=== PATIENT | female | born 1950 | race Caucasian/White ===

== ENCOUNTER → 2018-02-23 | Outpatient (CLI) | payer MEDICARE ==
--- NOTE | 2018-02-25 11:19 | PE ---
EXAMINATION TYPE: PET CT fusion skull to thigh DATE OF EXAM: 02/23/2018 COMPARISON: PET/CT January 08, 2016. HISTORY: Lung cancer progress study completed chemotherapy and radiation treatment in 2016. TECHNIQUE: Following the intravenous administration of 12.41 mCi of F-18 FDG, whole body images are performed from the skull base to the midthigh. Images are reviewed on the computer in the coronal, a xial, and sagittal planes. Reconstructed rotating images are created on independent workstation and reviewed on the computer. A noncontrast CT is performed in conjunction with the PET scan. SCAN: Subsequent Scan FINDINGS: SKULL BASE AND NECK: No suspicious new areas of hypermetabolic uptake are seen. CHEST, MEDIASTINUM, AND HILAR REGION: There is redemonstration of background of moderate emphysematou s change. There has been interval surgery with right anterolateral upper rib deformities. There is ir regular parenchymal scarring or scarlike opacity in the anterolateral right upper lung at area of james or neoplasm, no suspicious increased hypermetabolic uptake is seen to suggest recurrent local neoplas m. Mild diffuse uptake is presumed posttreatment change with max SUV less than 2.5. Some mild hyperme tabolic uptake is seen in the right scapular muscles near this level presumed inflammatory or related to surgery, max SUV is 3.3. Along the anterior inferior medial aspect of the treated area there is h owever new 9 x 5 mm nodule axial image 80. No suspicious hypermetabolic uptake is present No new areas of abnormal hypermetabolic uptake are otherwise seen. ABDOMEN AND PELVIS: No new areas of suspicious hypermetabolic uptake are seen. OSSEOUS STRUCTURES: No new areas of suspicious hypermetabolic uptake are seen. OTHER CT: There is new mild to moderate mucosal thickening in visualized portion of left maxillary sinus now id entified. There is mild calcified plaque at bilateral carotid bulbs redemonstrated. There are persistent enlarged pulmonary arteries, CT findings suggesting underlying pulmonary artery hypertension. There is coronary artery calcification which is noted marker for coronary artery disease. There are scattered pelvic phleboliths. There is moderate to severe calcified plaque of aorta extending into branch vessels. There is focal e ctasia of the abdominal aorta measuring up to 2.6 cm AP diameter axial image 154. There is tiny fat-containing umbilical hernia. There is facet arthropathy lower lumbar levels. There is multilevel spurring in the spine. IMPRESSION: Interval successful treatment of right lung neoplasm. No new suspicious areas of abnormal hypermetabolic uptake are seen to suggest recurrent neoplasm or metastatic disease. I do identify ne w 9 x 5 mm nodule near site of neoplasm and surgery without abnormal hypermetabolic uptake. Advise CT monitoring of this area.
== END ==
LOC: RADPETMAIN 09:21
PROVIDERS: ATTEND Radiology Radiation Oncology
DX: C34.11 Malignant neoplasm of upper lobe, right bronchus or lung (principal); C21.1 Malignant neoplasm of anal canal
CPT/HCPCS: 78815; A9552

== ENCOUNTER 2020-03-13 19:28 | Inpatient (IN) | payer MEDICARE ==
[2020-03-13] MEDS ORDERED: DEXTROSE 5% IN WATER 100 ML with AMIODARONE 150 MG IV ONE (20:02)
[2020-03-13] MEDS ORDERED: AMIODARONE 360 MG in DEXTROSE 5% IN WATER 200 ML IV ONE ×2 (20:03)
[2020-03-13] MEDS ORDERED: SODIUM CHLORIDE 0.9% 500 ML 500 ML IV STA (20:05)
[2020-03-13 20:19] LABS: Anisocytosis Slight; Basophils % (A) 0 %; Eosinophils % (A) 0 %; HCT 31.1 % (34.0-46.0); HGB 9.9 gm/dL (11.4-16.0); Lymphocytes # (A) 0.5 k/uL (1.0-4.8); Lymphocytes % (A) 7 %; MCH 31.5 pg (25.0-35.0); MCHC 31.9 g/dL (31.0-37.0); MCV 98.6 fL (80.0-100.0); Macrocytosis Slight; Mean Platelet Volume 8.8; Monocytes # (A) 0.3 k/uL (0-1.0); Monocytes % (A) 4 %; Neutrophils # (A) 6.6 k/uL (1.3-7.7); Neutrophils % (A) 87 %; Platelet Count 193 k/uL (150-450); RBC 3.15 m/uL (3.80-5.40); RDW 16.7 % (11.5-15.5); WBC 7.5 k/uL (3.8-10.6)
[2020-03-13 20:29] LABS: Albumin 2.9 g/dL (3.5-5.0); Calcium 8.7 mg/dL (8.4-10.2); Magnesium 2.2 mg/dL (1.6-2.3); Total Bilirubin 0.6 mg/dL (0.2-1.3); Total Protein 5.3 g/dL (6.3-8.2)
--- NOTE | 2020-03-13 20:43 | ED ---
General Adult HPI <StephonPranav D - Last Filed: 03/13/20 23:45> - General Source: patient, RN/MD, EMS, RN notes reviewed Mode of arrival: EMS Limitations: altered mental status <Garret Cervantes - Last Filed: 03/14/20 00:56> - General Chief complaint: Abdominal Pain Stated complaint: Abdominal Pain Time Seen by Provider: 03/13/20 19:46 - History of Present Illness Initial comments: 70-year-old female patient brought to ED from assisted living facility. Was apparently having abdominal pain. Patient does have history of dementia. Patient is altered and is unable to provide any history. (Garret Cervantes) - Related Data Home Medications Medication Instructions Recorded Confirmed Acetaminophen [Tylenol] 650 mg PO QID PRN 03/13/20 03/13/20 Aspirin 81 mg PO DAILY@169903/13/20 03/13/20 Atorvastatin [Lipitor] 20 mg PO HS@209903/13/20 03/13/20 Bisacodyl [Dulcolax] 10 mg RECTAL DAILY PRN 03/13/20 03/13/20 Carvedilol [Coreg] 3.125 mg PO BID@0800,209903/13/20 03/13/20 Donepezil HCl [Aricept] 5 mg PO HS@209903/13/20 03/13/20 Lactose-Reduced Food [Ensure Plus] 1 can PO DAILY@0800 03/13/20 03/13/20 Loperamide [Imodium] 2 mg PO DIRECTED PRN 03/13/20 03/13/20 Magic Cup 1 each PO DAILY@169903/13/20 03/13/20 Magnesium Hydroxide [Milk of 7,200 mg PO DAILY PRN 03/13/20 03/13/20 Magnesia Concentrate] Megestrol Acetate 400 mg PO BID@0800,0 03/13/20 03/13/20 Na Phos,M-B/Na Phos,Di-Ba [Fleet 133 ml RECTAL DAILY PRN 03/13/20 03/13/20 Adult] amLODIPine [Norvasc] 5 mg PO DAILY@0800 03/13/20 03/13/20 Allergies Allergy/AdvReac Type Severity Reaction Status Date / Time No Known Allergies Allergy Verified 03/13/20 20:49 Review of Systems ROS Other: All systems not noted in ROS Statement are negative. <Pranav Szymanski - Last Filed: 03/13/20 23:45> ROS Other: All systems not noted in ROS Statement are negative. <Garret Cervantes - Last Filed: 03/14/20 00:56> ROS Statement: Those systems with pertinent positive or pertinent negative responses have been documented in the HPI. Past Medical History History of Any Multi-Drug Resistant Organisms: MRSA Date of last positivie culture/infection: 06/22/16 MDRO Source:: RIGHT ARM <Garret Cervantes - Last Filed: 03/14/20 00:56> General Exam Limitations: altered mental status <Garret Cervantes - Last Filed: 03/14/20 00:56> - General Exam Comments Initial Comments: HEENT: NC/AT, trachea midline, neck supple, No pallor noted. Cardiopulmonary: HR irregular tachycardia, no murmurs, rubs or gallops, no JVD noted. Lungs CTAB in anterior and posterior barrett. No peripheral edema. Abdominal exam: Abdomen soft and non-distended. Abdomen non-tender to palpation in all 4 quadrants. Bowel sounds active in LLQ. No hepatosplenomegaly. No ecchymosis Neuro: No nuchal rigidity. No raccon eyes, no bejarano sign Radial pulse +2 bilaterally. (Garret Cervantes) Course Vital Signs 03/13/20 03/13/20 03/13/20 19:42 19:50 20:00 Temperature 97.7 F Pulse Rate 246 H 216 H 101 H Respiratory 26 H 26 H 26 H Rate Blood Pressure 134/63 134/63 104/74 O2 Sat by Pulse 92 L 92 L 97 Oximetry 03/13/20 03/13/20 03/13/20 20:10 20:20 20:30 Temperature Pulse Rate 248 H 156 H 224 H Respiratory 22 21 22 Rate Blood Pressure 163/68 123/77 108/61 O2 Sat by Pulse 96 96 96 Oximetry 03/13/20 03/13/20 03/13/20 20:40 20:50 21:00 Temperature Pulse Rate 137 H 203 H 194 H Respiratory 19 26 H 22 Rate Blood Pressure 97/62 108/65 64/46 O2 Sat by Pulse 97 98 100 Oximetry 0503/13/20 03/13/20 21:10 21:20 21:30 Temperature Pulse Rate 231 H 206 H Respiratory 21 21 Rate Blood Pressure 127/66 113/91 107/43 O2 Sat by Pulse 98 98 97 Oximetry 03/13/20 03/13/20 03/13/20 21:40 21:50 22:00 Temperature Pulse Rate 213 H 197 H 224 H Respiratory 23 19 23 Rate Blood Pressure 102/56 94/63 97/67 O2 Sat by Pulse 95 95 97 Oximetry 03/13/20 03/13/20 03/13/20 22:10 22:20 22:30 Temperature Pulse Rate 88 91 91 Respiratory 28 H 26 H 23 Rate Blood Pressure 133/66 125/59 137/59 O2 Sat by Pulse 96 98 97 Oximetry 03/13/20 03/13/20 03/13/20 22:40 22:50 23:00 Temperature Pulse Rate 92 90 203 H Respiratory 26 H 24 22 Rate Blood Pressure 139/57 140/64 115/95 O2 Sat by Pulse 98 97 96 Oximetry 03/13/20 03/13/20 03/13/20 23:10 23:20 23:30 Temperature Pulse Rate 203 H 224 H 220 H Respiratory 26 H 28 H 26 H Rate Blood Pressure 100/89 114/61 121/60 O2 Sat by Pulse 95 97 95 Oximetry 03/13/20 03/13/20 03/14/20 23:40 23:50 00:00 Temperature Pulse Rate 87 186 H 194 H Respiratory 26 H 26 H 26 H Rate Blood Pressure 97/51 97/79 110/71 O2 Sat by Pulse 96 96 97 Oximetry 03/14/20 03/14/20 03/14/20 00:10 00:20 00:30 Temperature Pulse Rate 174 H 192 H 181 H Respiratory 20 26 H 21 Rate Blood Pressure 106/73 94/59 100/67 O2 Sat by Pulse 96 96 95 Oximetry 03/14/20 00:40 Temperature 98.0 F Pulse Rate 224 H Respiratory 24 Rate Blood Pressure 121/78 O2 Sat by Pulse 96 Oximetry Procedures <Pranav Szymanski - Last Filed: 03/13/20 23:45> - Procedures Initial comment: Cardioversion with sedation performed twice using 2 mg of Versed each time. Synchronized cardioversion was performed with 125 J on first occasion and 100 J second occasion (Pranav Szymanski) Medical Decision Making - Lab Data Result diagrams: 03/13/20 19:59 03/13/20 19:59 <Pranav Szymanski - Last Filed: 03/13/20 23:45> - Lab Data Result diagrams: 03/13/20 23:17 03/13/20 19:59 - EKG Data -: EKG Interpreted by Me (and Dr. Szymanski ) - Radiology Data Radiology results: report reviewed <Garret Cervantes - Last Filed: 03/14/20 00:56> - Medical Decision Making PA attestation: I, Dr. Pranav Szymanski, personally saw and examined the patient. I have reviewed and agree with the resident/PA findings, including all diagnostic interpretations and treatment plans as written unless otherwise s tated. I was present for the napier portions of any procedures performed and inclusive time noted for any critical care statement. Patient was seen and evaluated along with Konstantin Cervantes PA-C. Briefly, patient is a 70-year-old female with past nuchal history of peripheral vascular disease. She has history of amputation. Patient brought to the emergency Department with heart rates in 240s. Initial monitor reading was concerning for ventricular tachycardia versus atrial fibrillation with abberrancy. Patient's blood pressures were stable. Laboratory evaluation was obtained. There is concern for dehydration with BUN to creatinine BUN of 63 creatinine 0.79. Troponins upon one-to-one likely secondary due to tachydysrhythmia. Patient was started on amiodarone for stable tachydysrhythmia, however patient blood pressure began to decrease. Patient was sedated using 2 mg of IV Versed. Synchronized cardioversion was performed with 125 J biphasic. Patient tolerated synchronized cardioversion well. Successful cardioversion was performed with adequate rate control. Patient is maintained on amiodarone. Patient heparinized. There is concern of new-onset atrial fibrillation. Case is discussed with vascular surgery Dr. Dawson given CT findings. Discussed patient case with Dr. Mora who is willing to accept patient's care to the intensive care unit. He requests that cardiology be contacted. Case was discussed with Dr. Shukla at 11:05 PM. He recommends that patient be continued on her current regimen and they will evaluate patient tomorrow in the morning.Patient reverted back to tachydysrhythmia. Cardiology was consulted again Dr. Shukla recommended to repeat cardioversion. And to have patient transferred to intensive care unit. Repeat cardioversion was performed. She maintained sinus rhythm for approximately 15 minutes then reverted back to tachydysrhythmia. Cardiology was contacted and Dr. Shukla recommended that patient be also started on Cardizem 10 mg per hour infusion the patient be sent to the intensive care unit (Parnav Szymanski) Vascular surgery Dr. Dawson was consulted with CAT scan results. He is comfortable with admission of this patient. He recommended high-intensity heparinization. This was initially initiated occult blood did come back positive. Heparin was discontinued. (Garret Cervantes) - Lab Data Lab Results 03/13/20 03/13/20 03/13/20 Range/Units 19:59 19:59 19:59 WBC 7.5 (3.8-10.6) k/uL RBC 3.15 L (3.80-5.40) m/uL Hgb 9.9 L (11.4-16.0) gm/dL Hct 31.1 L (34.0-46.0) % MCV 98.6 (80.0-100.0) fL MCH 31.5 (25.0-35.0) pg MCHC 31.9 (31.0-37.0) g/dL RDW 16.7 H (11.5-15.5) % Plt Count 193 (150-450) k/uL Neutrophils % 87 % Neutrophils % (Manual) % Band Neutrophils % % Lymphocytes % 7 % Lymphocytes % (Manual) % Monocytes % 4 % Eosinophils % 0 % Basophils % 0 % Neutrophils # 6.6 (1.3-7.7) k/uL Neutrophils # (Manual) (1.3-7.7) k/uL Lymphocytes # 0.5 L (1.0-4.8) k/uL Lymphocytes # (Manual) (1.0-4.8) k/uL Monocytes # 0.3 (0-1.0) k/uL Eosinophils # 0.0 (0-0.7) k/uL Basophils # 0.0 (0-0.2) k/uL Nucleated RBCs (0-0) /100 WBC Manual Slide Review Polychromasia Anisocytosis Slight Macrocytosis Slight PT (9.0-12.0) sec INR (<1.2) APTT (22.0-30.0) sec Sodium 139 (137-145) mmol/L Potassium 4.0 (3.5-5.1) mmol/L Chloride 104 (98-107) mmol/L Carbon Dioxide 25 (22-30) mmol/L Anion Gap 10 mmol/L BUN 63 H (7-17) mg/dL Creatinine 0.79 (0.52-1.04) mg/dL Est GFR (CKD-EPI)AfAm 87 (>60 ml/min/1.73 sqM) Est GFR (CKD-EPI)NonAf 76 (>60 ml/min/1.73 sqM) Glucose 116 H (74-99) mg/dL Plasma Lactic Acid Mitchell (0.7-2.0) mmol/L Calcium 8.7 (8.4-10.2) mg/dL Phosphorus 5.0 H (2.5-4.5) mg/dL Magnesium 2.2 (1.6-2.3) mg/dL Total Bilirubin 0.6 (0.2-1.3) mg/dL AST 23 (14-36) U/L ALT 30 (4-34) U/L Alkaline Phosphatase 68 (38-126) U/L Troponin I 0.121 H* (0.000-0.034) ng/mL Total Protein 5.3 L (6.3-8.2) g/dL Albumin 2.9 L (3.5-5.0) g/dL TSH 2.780 (0.465-4.680) mIU/L Urine Color Urine Appearance (Clear) Urine pH (5.0-8.0) Ur Specific [place] (1.001-1.035) Urine Protein (Negative) Urine Glucose (UA) (Negative) Urine Ketones (Negative) Urine Blood (Negative) Urine Nitrite (Negative) Urine Bilirubin (Negative) Urine Urobilinogen (<2.0) mg/dL Ur Leukocyte Esterase (Negative) Stool Occult Blood (Negative) 03/13/20 03/13/20 03/13/20 Range/Units 19:59 20:29 23:16 WBC (3.8-10.6) k/uL RBC (3.80-5.40) m/uL Hgb (11.4-16.0) gm/dL Hct (34.0-46.0) % MCV (80.0-100.0) fL MCH (25.0-35.0) pg MCHC (31.0-37.0) g/dL RDW (11.5-15.5) % Plt Count (150-450) k/uL Neutrophils % % Neutrophils % (Manual) % Band Neutrophils % % Lymphocytes % % Lymphocytes % (Manual) % Monocytes % % Eosinophils % % Basophils % % Neutrophils # (1.3-7.7) k/uL Neutrophils # (Manual) (1.3-7.7) k/uL Lymphocytes # (1.0-4.8) k/uL Lymphocytes # (Manual) (1.0-4.8) k/uL Monocytes # (0-1.0) k/uL Eosinophils # (0-0.7) k/uL Basophils # (0-0.2) k/uL Nucleated RBCs (0-0) /100 WBC Manual Slide Review Polychromasia Anisocytosis Macrocytosis PT 11.1 (9.0-12.0) sec INR 1.1 (<1.2) APTT 19.6 L (22.0-30.0) sec Sodium (137-145) mmol/L Potassium (3.5-5.1) mmol/L Chloride (98-107) mmol/L Carbon Dioxide (22-30) mmol/L Anion Gap mmol/L BUN (7-17) mg/dL Creatinine (0.52-1.04) mg/dL Est GFR (CKD-EPI)AfAm (>60 ml/min/1.73 sqM) Est GFR (CKD-EPI)NonAf (>60 ml/min/1.73 sqM) Glucose (74-99) mg/dL Plasma Lactic Acid Mitchell 2.7 H* (0.7-2.0) mmol/L Calcium (8.4-10.2) mg/dL Phosphorus (2.5-4.5) mg/dL Magnesium (1.6-2.3) mg/dL Total Bilirubin (0.2-1.3) mg/dL AST (14-36) U/L ALT (4-34) U/L Alkaline Phosphatase (38-126) U/L Troponin I (0.000-0.034) ng/mL Total Protein (6.3-8.2) g/dL Albumin (3.5-5.0) g/dL TSH (0.465-4.680) mIU/L Urine Color Urine Appearance (Clear) Urine pH (5.0-8.0) Ur Specific [place] (1.001-1.035) Urine Protein (Negative) Urine Glucose (UA) (Negative) Urine Ketones (Negative) Urine Blood (Negative) Urine Nitrite (Negative) Urine Bilirubin (Negative) Urine Urobilinogen (<2.0) mg/dL Ur Leukocyte Esterase (Negative) Stool Occult Blood Positive H (Negative) 03/13/20 03/13/20 03/13/20 Range/Units 23:16 23:17 23:17 WBC 6.3 (3.8-10.6) k/uL RBC 2.89 L (3.80-5.40) m/uL Hgb 9.5 L (11.4-16.0) gm/dL Hct 29.0 L (34.0-46.0) % MCV 100.1 H (80.0-100.0) fL MCH 32.7 (25.0-35.0) pg MCHC 32.7 (31.0-37.0) g/dL RDW 16.8 H (11.5-15.5) % Plt Count 162 (150-450) k/uL Neutrophils % % Neutrophils % (Manual) 84 % Band Neutrophils % 7 % Lymphocytes % % Lymphocytes % (Manual) 9 % Monocytes % % Eosinophils % % Basophils % % Neutrophils # (1.3-7.7) k/uL Neutrophils # (Manual) 5.70 (1.3-7.7) k/uL Lymphocytes # (1.0-4.8) k/uL Lymphocytes # (Manual) 0.57 L (1.0-4.8) k/uL Monocytes # (0-1.0) k/uL Eosinophils # (0-0.7) k/uL Basophils # (0-0.2) k/uL Nucleated RBCs 0 (0-0) /100 WBC Manual Slide Review Performed Polychromasia Present Anisocytosis Slight Macrocytosis Slight PT 11.6 (9.0-12.0) sec INR 1.1 (<1.2) APTT 50.4 H (22.0-30.0) sec Sodium (137-145) mmol/L Potassium (3.5-5.1) mmol/L Chloride (98-107) mmol/L Carbon Dioxide (22-30) mmol/L Anion Gap mmol/L BUN (7-17) mg/dL Creatinine (0.52-1.04) mg/dL Est GFR (CKD-EPI)AfAm (>60 ml/min/1.73 sqM) Est GFR (CKD-EPI)NonAf (>60 ml/min/1.73 sqM) Glucose (74-99) mg/dL Plasma Lactic Acid Mitchell (0.7-2.0) mmol/L Calcium (8.4-10.2) mg/dL Phosphorus (2.5-4.5) mg/dL Magnesium (1.6-2.3) mg/dL Total Bilirubin (0.2-1.3) mg/dL AST (14-36) U/L ALT (4-34) U/L Alkaline Phosphatase (38-126) U/L Troponin I (0.000-0.034) ng/mL Total Protein (6.3-8.2) g/dL Albumin (3.5-5.0) g/dL TSH (0.465-4.680) mIU/L Urine Color Yellow Urine Appearance Clear (Clear) Urine pH 5.5 (5.0-8.0) Ur Specific [place] >1.050 H (1.001-1.035) Urine Protein Trace H (Negative) Urine Glucose (UA) Negative (Negative) Urine Ketones Negative (Negative) Urine Blood Negative (Negative) Urine Nitrite Negative (Negative) Urine Bilirubin Negative (Negative) Urine Urobilinogen <2.0 (<2.0) mg/dL Ur Leukocyte Esterase Negative (Negative) Stool Occult Blood (Negative) - EKG Data EKG Comments: 1) ventricular rate to 46, QRS 174, QT/QTc 170/343. White complex tachycardia, ventricular tachycardia. 2) ventricular rate 100. Full ID 8, QRS 64, QT/QTC 3:30/425. Sensory in the short IN and PAC. Left ventricular hypertrophy with repolarization abnormality. Abnormal EKG. 3) ventricular rate 91, painful 98, QRS 72, QT/QTC 322/396. Sinus rhythm with short IN. Left ventricle hypertrophy with repolarization abnormality. Abnormal EKG. 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 Occlusion of the external iliac arteries and significant stenosis of the commo n iliac arteries.. Mild wall thickening loops of ileum in the pelvis which could relate to ischemic enteritis. 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 No aortic occlusion., large pulmonary arteries consistent with pulmonary hypertension, right anterior chest wall masses or tumors as increased inside. Old computed tomography scan with progression of tumor. Pulmonary emphysema, pulmonary fibrosis. No evidence of PE CT brain did not display acute process. (Garret Cervantes) Critical Care Time Critical Care Time: Yes Total Critical Care Time: 72 <Pranav Szymansik - Last Filed: 03/13/20 23:45> Critical Care Time: Patient presents with tachydysrhythmia that was associated with low blood pressure. Patient went to tachydysrhythmia on multiple occasions requiring multiple cardioversions. Multiple conversations were held with cardiology and intensive care unit. (Pranav Szymanski) Disposition <Pranav Szymanski - Last Filed: 03/13/20 23:45> Is patient prescribed a controlled substance at d/c from ED?: No <Garret Cervantes - Last Filed: 03/14/20 00:56> Clinical Impression: Tachyarrhythmia Disposition: ADMITTED IP TO THIS HOSP Condition: Serious Referrals: Carlo Spaulding MD [Primary Care Provider] - 1-2 days
[2020-03-13 20:58] LABS: INR 1.1 (<1.2); Prothrombin Time 11.1 sec (9.0-12.0)
[2020-03-13 21:07] LABS: Partial Thromboplastin Time 19.6 sec (22.0-30.0)
--- NOTE | 2020-03-13 21:32 | CT ---
EXAMINATION TYPE: CT brain wo con DATE OF EXAM: 03/13/2020 COMPARISON: None HISTORY: altered CT DLP: 1096 mGycm Automated exposure control for dose reduction was used. There is mild cerebral atrophy. There is no mass effect nor midline shift. There is no sign of intrac ranial hemorrhage. Calvarium is intact. There is no evidence of cerebral edema. IMPRESSION: Cerebral atrophy. No acute intracranial abnormality.
[2020-03-13] MEDS ORDERED: HEPARIN SODIUM,PORCINE 5,000 UNIT/ML 1 ML VIAL IV ONE (21:41)
[2020-03-13] MEDS ORDERED: HEPARIN SODIUM,PORCINE 5,000 UNIT/ML 1 ML VIAL IV PRN ×2 (21:41→22:23)
--- NOTE | 2020-03-13 21:42 | CT ---
EXAMINATION TYPE: CT ChestAbdPelvis w con PET CT scan 02/23/2018 comparison DATE OF EXAM: 03/13/2020 HISTORY: Elevated heart rate, confusion CT DLP: 424.3 mGycm Automated exposure control for dose reduction was used. CONTRAST: Performed with IV Contrast, patient injected with 100 mL of Isovue 300. There is pulmonary emphysema. There is 4 x 2 cm spiculated masslike infiltrate along the right anteri or chest wall at the pleura. Thoracic aorta is atheromatous. There is interstitial reticular density in the left upper lobe. There is no pleural effusion. There is pleural thickening left posterior lung base. Heart size is normal. There is no pericardial effusion. There are large central pulmonary enedina katlin. Thoracic aorta shows some atheromatous change. There is no aneurysm or dissection. I see no marisol ling defects of the pulmonary arteries. There is no pneumothorax. Liver shows no focal defect. Spleen appears normal. Stomach is dilated with fluid. Gallbladder is dilated and measures almost 4 cm in di ameter. There is no evidence of pancreatic mass. There is aneurysm of the upper abdominal aorta that measures 2.8 cm. There is thrombus on the anterior wall. There is no adrenal mass. Kidneys show no hy dronephrosis. Ureters are not dilated. There is no retroperitoneal adenopathy. There is bypass graft from the right subclavian artery to the femoral arteries. The graft shows no flow with contrast. Blad mary kay distends smoothly. There is no inguinal hernia. There is mild wall thickening of loops of small bowel in the pelvis. There is no evidence of free air . There is no ascites. There is subtotal occlusion of the proximal right iliac artery. Stenosis is wi thin 90%. No contrast is seen in the left femoral artery and the left external iliac artery. Thoracic and lumbar vertebra appear intact. There is no compression fracture. Sternum is intact. Bony pelvis appears intact. 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 There is occlusion of the exte rnal iliac arteries and significant stenosis of the common iliac arteries. There is mild wall thicken ing of loops of ileum in the pelvis that could relate to ischemic enteritis. 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 No aortic occlusion. Large pulmonary arteries consistent with pulmonary hypertension. There is right anterior chest wall m ass consistent with tumor that has increased in size compared to old CT scan and consistent with prog ression of tumor. Pulmonary emphysema. Pulmonary fibrosis. No evidence of pulmonary embolism.
[2020-03-13] MEDS ORDERED: HEPARIN SOD,PORK IN 0.45% NACL 25,000 UNIT in 0.45% NACL 1 250ML.BAG IV SCH ×2 (21:45→22:30)
[2020-03-13] MEDS ORDERED: MIDAZOLAM 1 MG/ML 5 ML VIAL IV STA ×2 (21:49→23:16)
[2020-03-13] MEDS ORDERED: SODIUM CHLORIDE 0.9% 1,000 ML IV ONE (21:49)
[2020-03-13 23:38] LABS: Appearance,Urine Clear (Clear); Bilirubin,Urine Negative (Negative); Blood,Urine Negative (Negative); Color,Urine Yellow; Glucose,Urine (UA) Negative (Negative); Ketones,Urine Negative (Negative); Leukocyte Esterase,Urine Negative (Negative); Nitrite,Urine Negative (Negative); PH, Urine 5.5 (5.0-8.0); Protein,Urine Trace (Negative); Urobilinogen,Urine <2.0 mg/dL (<2.0)
[2020-03-13 23:44] LABS: Anisocytosis Slight; HGB 9.5 gm/dL (11.4-16.0); MCH 32.7 pg (25.0-35.0); MCHC 32.7 g/dL (31.0-37.0); MCV 100.1 fL (80.0-100.0); Macrocytosis Slight; Mean Platelet Volume 9.4; Platelet Count 162 k/uL (150-450); RBC 2.89 m/uL (3.80-5.40); RDW 16.8 % (11.5-15.5); WBC 6.3 k/uL (3.8-10.6)
[2020-03-13] MEDS ORDERED: DILTIAZEM 125 MG in SODIUM CHLORIDE 0.9% 100 ML IV SCH (23:45)
[2020-03-13 23:48] LABS: Specific Gravity,Urine >1.050 (1.001-1.035)
[2020-03-13] MEDS ORDERED: NALOXONE 0.4 MG/ML 1 ML VIAL IV PRN (23:52)
[2020-03-13 23:55] LABS: INR 1.1 (<1.2); Partial Thromboplastin Time 50.4 sec (22.0-30.0); Prothrombin Time 11.6 sec (9.0-12.0)
[2020-03-14 00:32] LABS: Band Neutrophils % 7 %; Lymphocytes # (M) 0.57 k/uL (1.0-4.8); Neutrophils % (M) 84 %; Nucleated Red Blood Cells 0 /100 WBC (0-0); Polychromasia Present; Total Cells Counted 200
[2020-03-14 01:46] LABS: Glucose,Whole Blood 164 mg/dL (75-99)
[2020-03-14] MEDS ORDERED: AMIODARONE 300 MG in DEXTROSE 5% IN WATER 250 ML IV SCH ×2 (02:00)
[2020-03-14 03:04] LABS: Anisocytosis Slight; Basophils % (A) 0 %; Eosinophils % (A) 0 %; HGB 9.2 gm/dL (11.4-16.0); Lymphocytes # (A) 0.4 k/uL (1.0-4.8); Lymphocytes % (A) 8 %; MCH 32.8 pg (25.0-35.0); MCHC 32.8 g/dL (31.0-37.0); MCV 99.9 fL (80.0-100.0); Macrocytosis Slight; Mean Platelet Volume 8.5; Monocytes # (A) 0.3 k/uL (0-1.0); Monocytes % (A) 5 %; Neutrophils # (A) 4.7 k/uL (1.3-7.7); Neutrophils % (A) 86 %; Platelet Count 157 k/uL (150-450); RDW 16.6 % (11.5-15.5); WBC 5.5 k/uL (3.8-10.6)
[2020-03-14 03:27] LABS: African American GFR (CKD) >90 (>60 ml/min/1.73 sqM); Anion Gap 7 mmol/L; Blood Urea Nitrogen 55 mg/dL (7-17); Calcium 8.1 mg/dL (8.4-10.2); Carbon Dioxide 26 mmol/L (22-30); Chloride 104 mmol/L (98-107); Glucose 132 mg/dL (74-99); Non-African American GFR(CKD) 87 (>60 ml/min/1.73 sqM); Potassium 3.1 mmol/L (3.5-5.1); Sodium 137 mmol/L (137-145)
[2020-03-14] MEDS: SODIUM CHLORIDE 0.9% 1,000 ML IV SCH ×2 (07:08→21:05)
[2020-03-14] MEDS ORDERED: Potassium Replacement Protocol 1 EACH MISC MISCELLANE PRN (07:42)
[2020-03-14] MEDS ORDERED: HEPARIN SODIUM,PORCINE 5,000 UNIT/ML 1 ML VIAL IV PRN (08:29)
[2020-03-14] MEDS ORDERED: HEPARIN SODIUM,PORCINE 5,000 UNIT/ML 1 ML VIAL IV ONE (08:29)
[2020-03-14] MEDS: HEPARIN SOD,PORK IN 0.45% NACL 25,000 UNIT in 0.45% NACL 1 250ML.BAG IV SCH ×2 (09:10→12:05)
[2020-03-14] MEDS: POTASSIUM CHLORIDE 10 MEQ in WATER FOR INJECTION 1 100ML.BAG IVPB SCH ×4 (09:15→12:14)
[2020-03-14 09:44] LABS: Anisocytosis Slight; Basophils % (A) 0 %; Eosinophils % (A) 1 %; HCT 27.1 % (34.0-46.0); HGB 8.7 gm/dL (11.4-16.0); Lymphocytes # (A) 0.3 k/uL (1.0-4.8); Lymphocytes % (A) 6 %; MCV 99.7 fL (80.0-100.0); Macrocytosis Slight; Mean Platelet Volume 8.6; Monocytes # (A) 0.3 k/uL (0-1.0); Monocytes % (A) 5 %; Neutrophils # (A) 4.4 k/uL (1.3-7.7); Neutrophils % (A) 87 %; Platelet Count 140 k/uL (150-450); RBC 2.71 m/uL (3.80-5.40); RDW 16.5 % (11.5-15.5); WBC 5.1 k/uL (3.8-10.6)
[2020-03-14 09:52] LABS: INR 1.1 (<1.2); Partial Thromboplastin Time 22.4 sec (22.0-30.0)
[2020-03-14] MEDS: METOPROLOL TARTRATE 50 MG TAB PO SCH ×2 (10:12→20:58)
[2020-03-14 10:13] VITALS: BMI 16.9
--- NOTE | 2020-03-14 10:43 | P.GSCN ---
History of Present Illness Consult date: 03/14/20 Reason for Consult: Thrombosed axillobifemoral bypass graft. History of present illness: Patient is a 70-year-old female well known to the vascular surgery service. She had recently presented to [facility] with ischemic right lower extremity. Workup demonstrated severe aortoiliac occlusive disease as well as severe infrainguinal occlusive disease. She did undergone axillobifemoral bypass graft secondary to poor surgical candidate for aortobifemoral bypass graft. Eventually the patient did undergo a [id number] amputation on the right. She was to rehab however has not yet been seen in post discharge follow- up care until today. She was admitted to the hospital with severe tachycardia arrhythmia with a reported heart rate of 240 bpm. She did undergo cardioversion and remains on amiodarone drip at this time. Additionally at her admission she was complaining of abdominal pain for which she underwent computed tomography scan of her abdomen pelvis. This demonstrated thrombosis of the axillobifemoral bypass graft. Currently she denies any abdominal or pelvic pain or left lower extremity pain. Impression: #1: Thrombose axillobifemoral bypass graft. #2: Status post right AKA. #3: Stable vascular examination of the left lower extremity. #4: Multiple medical problems including coronary artery disease, anemia, hypokalemia, COPD, anterior chest wall mass. #5: The patient is very poor surgical risk. Recommendation: #1: No plan for vascular surgical intervention. #2: No indication of continued need of anticoagulation from a vascular surgical standpoint. I would be happy to reevaluate this patient during her hospital stay request. Past Medical History Past Medical History: Dementia, Hypertension Additional Past Medical History / Comment(s): AAA, neoplasm of lung, rectum, rectosigmoid junction and anus, chemo and radiation 2016, cognitive communication defects. PVD History of Any Multi-Drug Resistant Organisms: MRSA Year Discovered:: 06/22/16 MDRO Source:: RIGHT ARM Additional Past Surgical History / Comment(s): R AKJessica Smoking Status: Never smoker Medications and Allergies Home Medications Medication Instructions Recorded Confirmed Type Acetaminophen [Tylenol] 650 mg PO QID PRN 03/13/20 03/13/20 History Aspirin 81 mg PO DAILY@1700 03/13/20 03/13/20 History Atorvastatin [Lipitor] 20 mg PO HS@2100 03/13/20 03/13/20 History Bisacodyl [Dulcolax] 10 mg RECTAL DAILY PRN 03/13/20 03/13/20 History Carvedilol [Coreg] 3.125 mg PO BID@0800,2100 03/13/20 03/13/20 History Donepezil HCl [Aricept] 5 mg PO HS@2100 03/13/20 03/13/20 History Lactose-Reduced Food [Ensure Plus] 1 can PO DAILY@0800 03/13/20 03/13/20 History Loperamide [Imodium] 2 mg PO DIRECTED PRN 03/13/20 03/13/20 History Magic Cup 1 each PO DAILY@1700 03/13/20 03/13/20 History Magnesium Hydroxide [Milk of 7,200 mg PO DAILY PRN 03/13/20 03/13/20 History Magnesia Concentrate] Megestrol Acetate 400 mg PO BID@0800,1700 03/13/20 03/13/20 History Na Phos,M-B/Na Phos,Di-Ba [Fleet 133 ml RECTAL DAILY PRN 03/13/20 03/13/20 History Adult] amLODIPine [Norvasc] 5 mg PO DAILY@0800 03/13/20 03/13/20 History Allergies Allergy/AdvReac Type Severity Reaction Status Date / Time No Known Allergies Allergy Verified 03/13/20 20:49 Surgical - Exam Osteopathic Statement: *. No significant issues noted on an osteopathic structural exam other than those noted in the History and Physical/Consult. Vital Signs Temp Pulse Resp BP Pulse Ox 97.7 F 246 H 26 H 134/63 92 L 03/13/20 19:42 03/13/20 19:42 03/13/20 19:42 03/13/20 19:42 03/13/20 19:42 - General no pain, cachectic, chronically ill - Neck no masses, no bruits - Respiratory clear to auscultation - Cardiovascular Rhythm: regular - Abdomen Abdomen: soft, non tender Examination lower extremities demonstrates absent femoral pulses bilaterally as well as absence of the popliteal and pedal pulses on the left. The patient is status post right AKA. Patient's left leg is soft and nontender. The patient does not demonstrate s ignificant neuropathy and can wiggle her toes without issue. Results - Labs 03/14/20 09:25 03/14/20 02:38 Abnormal Lab Results - Last 24 Hours (Table) 03/13/20 03/13/20 03/13/20 Range/Units 19:59 19:59 19:59 RBC 3.15 L (3.80-5.40) m/uL Hgb 9.9 L (11.4-16.0) gm/dL Hct 31.1 L (34.0-46.0) % MCV (80.0-100.0) fL RDW 16.7 H (11.5-15.5) % Plt Count (150-450) k/uL Lymphocytes # 0.5 L (1.0-4.8) k/uL Lymphocytes # (Manual) (1.0-4.8) k/uL APTT (22.0-30.0) sec Potassium (3.5-5.1) mmol/L BUN 63 H (7-17) mg/dL Glucose 116 H (74-99) mg/dL POC Glucose (mg/dL) (75-99) mg/dL Plasma Lactic Acid Mitchell (0.7-2.0) mmol/L Calcium (8.4-10.2) mg/dL Phosphorus 5.0 H (2.5-4.5) mg/dL Troponin I 0.121 H* (0.000-0.034) ng/mL Total Protein 5.3 L (6.3-8.2) g/dL Albumin 2.9 L (3.5-5.0) g/dL Ur Specific [place] (1.001-1.035) Urine Protein (Negative) Stool Occult Blood (Negative) 03/13/20 03/13/20 03/13/20 Range/Units 19:59 20:29 23:16 RBC (3.80-5.40) m/uL Hgb (11.4-16.0) gm/dL Hct (34.0-46.0) % MCV (80.0-100.0) fL RDW (11.5-15.5) % Plt Count (150-450) k/uL Lymphocytes # (1.0-4.8) k/uL Lymphocytes # (Manual) (1.0-4.8) k/uL APTT 19.6 L (22.0-30.0) sec Potassium (3.5-5.1) mmol/L BUN (7-17) mg/dL Glucose (74-99) mg/dL POC Glucose (mg/dL) (75-99) mg/dL Plasma Lactic Acid Mitchell 2.7 H* (0.7-2.0) mmol/L Calcium (8.4-10.2) mg/dL Phosphorus (2.5-4.5) mg/dL Troponin I (0.000-0.034) ng/mL Total Protein (6.3-8.2) g/dL Albumin (3.5-5.0) g/dL Ur Specific [place] (1.001-1.035) Urine Protein (Negative) Stool Occult Blood Positive H (Negative) 03/13/20 03/13/20 03/13/20 Range/Units 23:16 23:17 23:17 RBC 2.89 L (3.80-5.40) m/uL Hgb 9.5 L (11.4-16.0) gm/dL Hct 29.0 L (34.0-46.0) % MCV 100.1 H (80.0-100.0) fL RDW 16.8 H (11.5-15.5) % Plt Count (150-450) k/uL Lymphocytes # (1.0-4.8) k/uL Lymphocytes # (Manual) 0.57 L (1.0-4.8) k/uL APTT 50.4 H (22.0-30.0) sec Potassium (3.5-5.1) mmol/L BUN (7-17) mg/dL Glucose (74-99) mg/dL POC Glucose (mg/dL) (75-99) mg/dL Plasma Lactic Acid Mitchell (0.7-2.0) mmol/L Calcium (8.4-10.2) mg/dL Phosphorus (2.5-4.5) mg/dL Troponin I (0.000-0.034) ng/mL Total Protein (6.3-8.2) g/dL Albumin (3.5-5.0) g/dL Ur Specific [place] >1.050 H (1.001-1.035) Urine Protein Trace H (Negative) Stool Occult Blood (Negative) 03/14/20 03/14/20 03/14/20 Range/Units 01:45 02:32 02:38 RBC 2.80 L (3.80-5.40) m/uL Hgb 9.2 L (11.4-16.0) gm/dL Hct 28.0 L (34.0-46.0) % MCV (80.0-100.0) fL RDW 16.6 H (11.5-15.5) % Plt Count (150-450) k/uL Lymphocytes # 0.4 L (1.0-4.8) k/uL Lymphocytes # (Manual) (1.0-4.8) k/uL APTT (22.0-30.0) sec Potassium (3.5-5.1) mmol/L BUN (7-17) mg/dL Glucose (74-99) mg/dL POC Glucose (mg/dL) 164 H (75-99) mg/dL Plasma Lactic Acid Mitchell 2.4 H* (0.7-2.0) mmol/L Calcium (8.4-10.2) mg/dL Phosphorus (2.5-4.5) mg/dL Troponin I (0.000-0.034) ng/mL Total Protein (6.3-8.2) g/dL Albumin (3.5-5.0) g/dL Ur Specific [place] (1.001-1.035) Urine Protein (Negative) Stool Occult Blood (Negative) 03/14/20 03/14/20 Range/Units 02:38 09:25 RBC 2.71 L (3.80-5.40) m/uL Hgb 8.7 L (11.4-16.0) gm/dL Hct 27.1 L (34.0-46.0) % MCV (80.0-100.0) fL RDW 16.5 H (11.5-15.5) % Plt Count 140 L (150-450) k/uL Lymphocytes # 0.3 L (1.0-4.8) k/uL Lymphocytes # (Manual) (1.0-4.8) k/uL APTT (22.0-30.0) sec Potassium 3.1 L (3.5-5.1) mmol/L BUN 55 H (7-17) mg/dL Glucose 132 H (74-99) mg/dL POC Glucose (mg/dL) (75-99) mg/dL Plasma Lactic Acid Mitchell (0.7-2.0) mmol/L Calcium 8.1 L (8.4-10.2) mg/dL Phosphorus (2.5-4.5) mg/dL Troponin I (0.000-0.034) ng/mL Total Protein (6.3-8.2) g/dL Albumin (3.5-5.0) g/dL Ur Specific [place] (1.001-1.035) Urine Protein (Negative) Stool Occult Blood (Negative) Diabetes panel 03/13/20 03/14/20 Range/Units 19:59 02:38 Sodium 139 137 (137-145) mmol/L Potassium 4.0 3.1 L (3.5-5.1) mmol/L Chloride 104 104 (98-107) mmol/L Carbon Dioxide 25 26 (22-30) mmol/L BUN 63 H 55 H (7-17) mg/dL Creatinine 0.79 0.69 (0.52-1.04) mg/dL Glucose 116 H 132 H (74-99) mg/dL Calcium 8.7 8.1 L (8.4-10.2) mg/dL AST 23 (14-36) U/L ALT 30 (4-34) U/L Alkaline Phosphatase 68 (38-126) U/L Total Protein 5.3 L (6.3-8.2) g/dL Albumin 2.9 L (3.5-5.0) g/dL Thyroid panel 03/13/20 Range/Units 19:59 TSH 2.780 (0.465-4.680) mIU/L Calcium panel 03/13/20 03/14/20 Range/Units 19:59 02:38 Calcium 8.7 8.1 L (8.4-10.2) mg/dL Phosphorus 5.0 H (2.5-4.5) mg/dL Albumin 2.9 L (3.5-5.0) g/dL Pituitary panel 03/13/20 03/14/20 Range/Units 19:59 02:38 Sodium 139 137 (137-145) mmol/L Potassium 4.0 3.1 L (3.5-5.1) mmol/L Chloride 104 104 (98-107) mmol/L Carbon Dioxide 25 26 (22-30) mmol/L BUN 63 H 55 H (7-17) mg/dL Creatinine 0.79 0.69 (0.52-1.04) mg/dL Glucose 116 H 132 H (74-99) mg/dL Calcium 8.7 8.1 L (8.4-10.2) mg/dL TSH 2.780 (0.465-4.680) mIU/L Adrenal panel 03/13/20 03/14/20 Range/Units 19:59 02:38 Sodium 139 137 (137-145) mmol/L Potassium 4.0 3.1 L (3.5-5.1) mmol/L Chloride 104 104 (98-107) mmol/L Carbon Dioxide 25 26 (22-30) mmol/L BUN 63 H 55 H (7-17) mg/dL Creatinine 0.79 0.69 (0.52-1.04) mg/dL Glucose 116 H 132 H (74-99) mg/dL Calcium 8.7 8.1 L (8.4-10.2) mg/dL Total Bilirubin 0.6 (0.2-1.3) mg/dL AST 23 (14-36) U/L ALT 30 (4-34) U/L Alkaline Phosphatase 68 (38-126) U/L Total Protein 5.3 L (6.3-8.2) g/dL Albumin 2.9 L (3.5-5.0) g/dL
[2020-03-14] MEDS: AMIODARONE 300 MG in DEXTROSE 5% IN WATER 250 ML IV SCH ×6 (12:14→20:31)
--- NOTE | 2020-03-14 13:08 | P.CNPUL ---
History of Present Illness Consult date: 03/14/20 Requesting physician: Carlo Spaulding Reason for consult: other (Atrial fibrillation with RVR requiring cardioversion.) Chief complaint: Altered mental status. And vague abdominal pains. History of present illness: This is a 70-year-old female with history of multiple medical problems including severe peripheral vessel occlusive disease, history of right above-knee amputation, cardiomyopathy, LV dysfunction, hypertension, dementia, medical debility, patient was brought into the ER yesterday mostly with complaints of vague abdominal pains, patient is known to have history of dementia, and not much history could be obtained from the patient herself. While in the ER, patient developed atrial fibrillation with RVR, and she underwent cardioversion with 1.5 J on the first occasion, and 100 J on the second occasion. Patient was cardioverted to sinus rhythm, and considering the presentation, further workup was done. Patient was found to have significant abnormal CT of the abdomen and pelvis. She was found to have thrombosed axillobifemoral bypass graft. Right anterior chest wall mass which is consistent with her history of lung cancer. She was also found to have thrombosed subclavian femoral bypass graft. Occlusion of the external iliac arteries, and stenosis of the common iliac arteries. There was also evidence of aneurysm of the upper abdominal aorta measuring 2.8 cm, thrombus on the anterior wall noted. No retroperitoneal adenopathy was noted. In addition to all of this and what complicates things even more was the fact that the patient was noted to have positive Hemoccult stools. Heparin was initially started because of her vascular findings, but it was later discontinued because of her Hemoccult stools positive. I saw the patient, and I recommended that he heparin measuring the patient, however cardiology and vascular surgery did not feel that heparin would be of any value at this point. Hence heparin was discontinued. And was not recommended by vascular surgery and by cardiology. Pulmonary-beach, the patient seems to be doing fairly well, does not seem to be in any respiratory distress. She is presently on amiodarone at 0.5 mg/m, IV fluid at 60 mL per hour. GI consultation is pending because of her positive Hemoccult stools. Patient was already seen by vascular surgery, and did not feel need for any surgical procedures. Also advised against heparin Review of Systems ROS unobtainable: due to mental status Past Medical History Past Medical History: Dementia, Hypertension Additional Past Medical History / Comment(s): AAA, neoplasm of lung, rectum, rectosigmoid junction and anus, chemo and radiation 2016, cognitive communication defects. PVD History of Any Multi-Drug Resistant Organisms: MRSA Date of last positivie culture/infection: 06/22/16 MDRO Source:: RIGHT ARM Additional Past Surgical History / Comment(s): R AKA Smoking Status: Never smoker Medications and Allergies Home Medications Medication Instructions Recorded Confirmed Type Acetaminophen [Tylenol] 650 mg PO QID PRN 03/13/20 03/13/20 History Aspirin 81 mg PO DAILY@169903/13/20 03/13/20 History Atorvastatin [Lipitor] 20 mg PO HS@209903/13/20 03/13/20 History Bisacodyl [Dulcolax] 10 mg RECTAL DAILY PRN 03/13/20 03/13/20 History Carvedilol [Coreg] 3.125 mg PO BID@0800,209903/13/20 03/13/20 History Donepezil HCl [Aricept] 5 mg PO HS@209903/13/20 03/13/20 History Lactose-Reduced Food [Ensure Plus] 1 can PO DAILY@0800 03/13/20 03/13/20 History Loperamide [Imodium] 2 mg PO DIRECTED PRN 03/13/20 03/13/20 History Magic Cup 1 each PO DAILY@169903/13/20 03/13/20 History Magnesium Hydroxide [Milk of 7,200 mg PO DAILY PRN 03/13/20 03/13/20 History Magnesia Concentrate] Megestrol Acetate 400 mg PO BID@0800,0 03/13/20 03/13/20 History Na Phos,M-B/Na Phos,Di-Ba [Fleet 133 ml RECTAL DAILY PRN 03/13/20 03/13/20 History Adult] amLODIPine [Norvasc] 5 mg PO DAILY@0800 03/13/20 03/13/20 History Allergies Allergy/AdvReac Type Severity Reaction Status Date / Time No Known Allergies Allergy Verified 03/13/20 20:49 Physical Exam Vitals: Vital Signs Temp Pulse Pulse Resp BP Pulse Ox 03/14/20 12:30 64 22 104/52 03/14/20 12:00 98.2 F 66 19 108/60 88 L 03/14/20 11:30 62 22 112/58 97 03/14/20 11:00 172 H 24 118/58 96 03/14/20 10:30 76 17 120/45 98 03/14/20 10:00 71 21 121/49 99 03/14/20 09:30 71 21 133/51 97 20 09:00 189 H 22 121/51 97 03/14/20 08:30 71 22 122/55 95 03/14/20 08:00 98.1 F 71 22 122/50 95 03/14/20 07:30 71 24 125/52 90 L 03/14/20 07:15 72 24 110/47 91 L 03/14/20 05:30 73 24 135/85 93 L 03/14/20 05:15 80 8 L 134/51 93 L 03/14/20 05:00 75 25 H 67/54 89 L 03/14/20 04:45 161 H 26 H 91/61 86 L 03/14/20 04:30 200 H 27 H 122/49 89 L 03/14/20 04:15 97.6 F 73 21 120/58 92 L 03/14/20 04:00 74 25 H 109/91 92 L 03/14/20 03:50 74 26 H 109/91 91 L 03/14/20 03:40 77 27 H 109/91 92 L 03/14/20 03:30 75 26 H 109/91 92 L 03/14/20 03:20 77 26 H 109/91 91 L 03/14/20 03:10 79 24 109/91 93 L 03/14/20 03:00 76 25 H 109/91 95 03/14/20 02:50 75 25 H 109/91 92 L 03/14/20 02:40 76 26 H 109/91 92 L 03/14/20 02:30 79 25 H 109/91 90 L 03/14/20 02:20 76 24 109/91 89 L 03/14/20 02:18 91 L 03/14/20 02:10 172 H 28 H 109/91 88 L 03/14/20 02:00 203 H 26 H 102/52 89 L 03/14/20 01:50 181 H 30 H 102/52 92 L 03/14/20 01:45 200 H 03/14/20 01:44 97.6 F 18 96 03/14/20 01:40 39 H 03/14/20 01:30 130/67 03/14/20 01:20 80 29 H 140/66 03/14/20 01:10 194 H 26 H 97/57 03/14/20 01:00 192 H 29 H 117/62 20 00:50 97.6 F 200 H 27 H 96/77 03/14/20 00:40 98.0 F 224 H 24 121/78 96 03/14/20 00:30 181 H 21 100/67 95 03/14/20 00:20 192 H 26 H 94/59 96 03/14/20 00:10 174 H 20 106/73 96 03/14/20 00:00 194 H 26 H 110/71 97 03/13/20 23:50 186 H 26 H 97/79 96 03/13/20 23:40 87 26 H 97/51 96 03/13/20 23:30 220 H 26 H 121/60 95 03/13/20 23:20 224 H 28 H 114/61 97 03/13/20 23:10 203 H 26 H 100/89 95 20 23:00 203 H 22 115/95 96 0520 22:50 90 24 140/64 97 0520 22:40 92 26 H 139/57 98 20 22:30 91 23 137/59 97 05//20 22:20 91 26 H 125/59 98 20 22:10 88 28 H 133/66 96 20 22:00 224 H 23 97/67 97 0520 21:50 197 H 19 94/63 95 05//20 21:40 213 H 23 102/56 95 05/20 21:30 206 H 21 107/43 97 05/20 21:20 231 H 21 113/91 98 05/20 21:10 127/66 98 0520 21:00 194 H 22 64/46 100 05/20 20:50 203 H 26 H 108/65 98 05/2320 20:40 137 H 19 97/62 97 05/20 20:30 224 H 22 108/61 96 05/23/20 20:20 156 H 21 123/77 96 03/13/20 20:10 248 H 22 163/68 96 03/13/20 20:06 246 H 03/13/20 20:00 101 H 26 H 104/74 97 03/13/20 19:50 216 H 26 H 134/63 92 L 03/13/20 19:42 97.7 F 246 H 26 H 134/63 92 L Intake and Output 03/13/20 03/14/20 03/14/20 22:59 06:59 14:59 Intake Total 360 700 Output Total 385 225 Balance -25 475 Intake: IV 360 300 Sodium Chloride 0.9% 1, 360 300 000 ml @ 60 mls/hr IV . [id number] [facility] Rx#:[id number] Intake, IV Titration 400 Amount Potassium Chloride 10 meq 400 In Water For Injection 1 100ml.bag @ 100 mls/hr IVPB Q1HR [facility] Rx#: [id number] Output: Urine 385 225 Other: Voiding Method Indwelling Catheter Indwelling Catheter Weight 40.823 kg 44.9 kg 44.9 kg Physical Exam: Revealed 70-year-old female frail looking, chronically ill- looking, in no distress. Head: Atraumatic, normocephalic. HEENT:[Neck is supple.] [No neck masses.] [No thyromegaly.] [No JVD.] Chest: [Symmetrical chest expansion, clear breath sound bilaterally no crackles or rhonchi or wheezes. Cardiac Exam: [Normal S1 and S2, no S3 gallop, 2/6 systolic murmur thought the precordium..] Abdomen: [Soft, nontender, no megaly, no rebound, no guarding, normal bowel sounds.] Extremities: Right above-knee amputation is noted otherwise unremarkable, no palpable pulses in the left foot.] Neurological Exam: [Patient is confused, follows simple instructions, otherwise no gross focal deficit. Psychiatric: Depressed mood, blunt affect, confused mental status. Skin: No rashes. Again right above-knee amputation was noted. Results - Laboratory Findings CBC and BMP: 03/14/20 09:25 03/14/20 02:38 PT/INR, D-dimer PT 11.0 sec (9.0-12.0) 03/14/20 09:25 INR 1.1 (<1.2) 03/14/20 09:25 Abnormal lab findings: Abnormal Labs 03/13/20 03/13/20 03/13/20 19:59 19:59 19:59 RBC 3.15 L Hgb 9.9 L Hct 31.1 L MCV RDW 16.7 H Plt Count Lymphocytes # 0.5 L Lymphocytes # (Manual) APTT Potassium BUN 63 H Glucose 116 H POC Glucose (mg/dL) Plasma Lactic Acid Mitchell Calcium Phosphorus 5.0 H Troponin I 0.121 H* Total Protein 5.3 L Albumin 2.9 L Ur Specific [place] Urine Protein Stool Occult Blood 03/13/20 03/13/20 03/13/20 19:59 20:29 23:16 RBC Hgb Hct MCV RDW Plt Count Lymphocytes # Lymphocytes # (Manual) APTT 19.6 L Potassium BUN Glucose POC Glucose (mg/dL) Plasma Lactic Acid Mitchell 2.7 H* Calcium Phosphorus Troponin I Total Protein Albumin Ur Specific [place] Urine Protein Stool Occult Blood Positive H 03/13/20 03/13/20 03/13/20 23:16 23:17 23:17 RBC 2.89 L Hgb 9.5 L Hct 29.0 L MCV 100.1 H RDW 16.8 H Plt Count Lymphocytes # Lymphocytes # (Manual) 0.57 L APTT 50.4 H Potassium BUN Glucose POC Glucose (mg/dL) Plasma Lactic Acid [place] Calcium Phosphorus Troponin I Total Protein Albumin Ur Specific [place] >1.050 H Urine Protein Trace H Stool Occult Blood 03/14/20 03/14/20 03/14/20 01:45 02:32 02:38 RBC 2.80 L Hgb 9.2 L Hct 28.0 L MCV RDW 16.6 H Plt Count Lymphocytes # 0.4 L Lymphocytes # (Manual) APTT Potassium BUN Glucose POC Glucose (mg/dL) 164 H Plasma Lactic Acid [place] 2.4 H* Calcium Phosphorus Troponin I Total Protein Albumin Ur Specific [place] Urine Protein Stool Occult Blood 03/14/20 03/14/20 02:38 09:25 RBC 2.71 L Hgb 8.7 L Hct 27.1 L MCV RDW 16.5 H Plt Count 140 L Lymphocytes # 0.3 L Lymphocytes # (Manual) APTT Potassium 3.1 L BUN 55 H Glucose 132 H POC Glucose (mg/dL) Plasma Lactic Acid Mitchell Calcium 8.1 L Phosphorus Troponin I Total Protein Albumin Ur Specific [place] Urine Protein Stool Occult Blood - Diagnostic Findings Additional studies: CT of the chest abdomen and pelvis noted. As noted in HPI. Assessment and Plan Assessment: Impression: Atrial fibrillation with RVR requiring cardioversion by ER physician. Presently in sinus rhythm. Suspect history of lung cancer, likely adenocarcinoma involving the right upper lobe. And involving the right chest wall pain. Previous PET scan dated 02/25/2018, showed successful treatment of right lung neoplasm. There was no evidence of hypermetabolic uptake on Severe peripheral vessel occlusive disease and thrombosis of multiple grafts. Positive Hemoccult stools, suspect GI bleeding. Recommendation: Considering the patient has no active pulmonary issues, will recommend that the patient is managed by cardiology for her arrhythmia, and she was already seen by vascular surgery who felt no need for any surgical intervention and no need for heparin. Suggest GI evaluation for positive Hemoccult stools Will follow on when necessary basis. Prognosis is extremely poor and guarded. Time with Patient: Greater than 30
--- NOTE | 2020-03-14 15:19 | P.HPIM ---
History of Present Illness 70-year-old female was sent in because of the complains of abdominal pain unable to get much of the history patient is externally poor historian patient later in the ER found to have increased heart rate of to 40 bpm appears to be sober and to tachycardia and did undergo cardioversion and did receive amiodarone and remained on amiodarone drip. Patient has multiple other medical issues going on patient appears to be completely bedbound had right below-knee amputation and workup revealed a severe iron 3 occlusive disease and thrombosed axillofemoral bypass graft. Patient doesn't have any blood in the stools dark stools but to have stool occult was positive there is no evidence of GI bleed at this time. Patient had an abdominal computed tomography scan which showed worsening mass in the chest. Which is consistent with lung cancer. Patient had history of lung cancer in 2016 with the metastatic disease patient was initially on heparin which was subsequently discontinued vascular surgery did not recommend any heparin and patient didn't seem to be in A. fib with rather him to be in the supra SVT and heart rate in 240s is consistent with SVT. His no evidence of acute GI bleed at this time Review of Systems Unable to obtain due to her clinical condition Past Medical History Past Medical History: Dementia, Hypertension Additional Past Medical History / Comment(s): AAA, neoplasm of lung, rectum, rectosigmoid junction and anus, chemo and radiation 2016, cognitive communication defects. PVD History of Any Multi-Drug Resistant Organisms: MRSA Date of last positivie culture/infection: 06/22/16 MDRO Source:: RIGHT ARM Additional Past Surgical History / Comment(s): R AKA Smoking Status: Never smoker Medications and Allergies Home Medications Medication Instructions Recorded Confirmed Type Acetaminophen [Tylenol] 650 mg PO QID PRN 03/13/20 03/13/20 History Aspirin 81 mg PO DAILY@1700 03/13/20 03/13/20 History Atorvastatin [Lipitor] 20 mg PO HS@209903/13/20 03/13/20 History Bisacodyl [Dulcolax] 10 mg RECTAL DAILY PRN 03/13/20 03/13/20 History Carvedilol [Coreg] 3.125 mg PO BID@0800,2100 03/13/20 03/13/20 History Donepezil HCl [Aricept] 5 mg PO HS@209903/13/2020 History Lactose-Reduced Food [Ensure Plus] 1 can PO DAILY@0800 03/13/20 03/13/20 History Loperamide [Imodium] 2 mg PO DIRECTED PRN 03/13/20 03/13/20 History Magic Cup 1 each PO DAILY@1700 03/13/20 03/13/20 History Magnesium Hydroxide [Milk of 7,200 mg PO DAILY PRN 03/13/20 03/13/20 History Magnesia Concentrate] Megestrol Acetate 400 mg PO BID@0800,1700 03/13/20 03/13/20 History Na Phos,M-B/Na Phos,Di-Ba [Fleet 133 ml RECTAL DAILY PRN 03/13/20 03/13/20 History Adult] amLODIPine [Norvasc] 5 mg PO DAILY@0800 03/13/20 03/13/20 History Allergies Allergy/AdvReac Type Severity Reaction Status Date / Time No Known Allergies Allergy Verified 03/13/20 20:49 Physical Exam Vitals: Vital Signs Temp Pulse Pulse Resp BP Pulse Ox 03/14/20 14:30 69 20 116/52 95 03/14/20 14:00 67 21 107/57 95 03/14/20 13:30 66 21 111/53 03/14/20 13:00 66 20 106/60 03/14/20 12:30 64 22 104/52 03/14/20 12:00 98.2 F 66 19 108/60 88 L 03/14/20 11:30 62 22 112/58 97 03/14/20 11:00 172 H 24 118/58 96 03/14/20 10:30 76 17 120/45 98 03/14/20 10:00 71 21 121/49 99 03/14/20 09:30 71 21 133/51 97 03/14/20 09:00 189 H 22 121/51 97 03/14/20 08:30 71 22 122/55 95 03/14/20 08:00 98.1 F 71 22 122/50 95 03/14/20 07:30 71 24 125/52 90 L 03/14/20 07:15 72 24 110/47 91 L 03/14/20 05:30 73 24 135/85 93 L 03/14/20 05:15 80 8 L 134/51 93 L 03/14/20 05:00 75 25 H 67/54 89 L 03/14/20 04:45 161 H 26 H 91/61 86 L 03/14/20 04:30 200 H 27 H 122/49 89 L 03/14/20 04:15 97.6 F 73 21 120/58 92 L 03/14/20 04:00 74 25 H 109/91 92 L 03/14/20 03:50 74 26 H 109/91 91 L 03/14/20 03:40 77 27 H 109/91 92 L 03/14/20 03:30 75 26 H 109/91 92 L 03/14/20 03:20 77 26 H 109/91 91 L 03/14/20 03:10 79 24 109/91 93 L 03/14/20 03:00 76 25 H 109/91 95 03/14/20 02:50 75 25 H 109/91 92 L 03/14/20 02:40 76 26 H 109/91 92 L 03/14/20 02:30 79 25 H 109/91 90 L 03/14/20 02:20 76 24 109/91 89 L 03/14/20 02:18 91 L 03/14/20 02:10 172 H 28 H 109/91 88 L 03/14/20 02:00 203 H 26 H 102/52 89 L 03/14/20 01:50 181 H 30 H 102/52 92 L 03/14/20 01:45 200 H 03/14/20 01:44 97.6 F 18 96 03/14/20 01:40 39 H 03/14/20 01:30 130/67 03/14/20 01:20 80 29 H 140/66 03/14/20 01:10 194 H 26 H 97/57 03/14/20 01:00 192 H 29 H 117/62 03/14/20 00:50 97.6 F 200 H 27 H 96/77 03/14/20 00:40 98.0 F 224 H 24 121/78 96 03/14/20 00:30 181 H 21 100/67 95 03/14/20 00:20 192 H 26 H 94/59 96 03/14/20 00:10 174 H 20 106/73 96 03/14/20 00:00 194 H 26 H 110/71 97 05/23/20 23:50 186 H 26 H 97/79 96 20 23:40 87 26 H 97/51 96 20 23:30 220 H 26 H 121/60 95 03/13/20 23:20 224 H 28 H 114/61 97 20 23:10 203 H 26 H 100/89 95 20 23:00 203 H 22 115/95 96 20 22:50 90 24 140/64 97 20 22:40 92 26 H 139/57 98 20 22:30 91 23 137/59 97 20 22:20 91 26 H 125/59 98 20 22:10 88 28 H 133/66 96 03/13/20 22:00 224 H 23 97/67 97 20 21:50 197 H 19 94/63 95 03/13/20 21:40 213 H 23 102/56 95 20 21:30 206 H 21 107/43 97 03/13/20 21:20 231 H 21 113/91 98 20 21:10 127/66 98 20 21:00 194 H 22 64/46 100 20 20:50 203 H 26 H 108/65 98 20 20:40 137 H 19 97/62 97 20 20:30 224 H 22 108/61 96 20 20:20 156 H 21 123/77 96 20 20:10 248 H 22 163/68 96 03/13/20 20:06 246 H 03/13/20 20:00 101 H 26 H 104/74 97 20 19:50 216 H 26 H 134/63 92 L 03/13/20 19:42 97.7 F 246 H 26 H 134/63 92 L Intake and Output 03/14/20 03/14/20 03/14/20 06:59 14:59 22:59 Intake Total 360 820 Output Total 385 375 Balance -25 445 Intake: IV 360 420 Sodium Chloride 0.9% 1, 360 420 000 ml @ 60 mls/hr IV . [id number] [facility] Rx#:[id number] Intake, IV Titration 400 Amount Potassium Chloride 10 meq 400 In Water For Injection 1 100ml.bag @ 100 mls/hr IVPB Q1HR [facility] Rx#: [id number] Output: Urine 385 375 Other: Voiding Method Indwelling Catheter Indwelling Catheter Weight 44.9 kg 44.9 kg PHYSICAL EXAMINATION: GENERAL: Patient appears to be tight fatigued alert and oriented 1-2 thin built HEENT: Pupils are round and equally reacting to light. EOMI. No scleral icterus. No conjunctival pallor. Normocephalic, atraumatic. No pharyngeal erythema. No thyromegaly. CARDIOVASCULAR: S1 and S2 present. No murmurs, rubs, or gallops. PULMONARY: Chest is clear to auscultation, no wheezing or crackles. ABDOMEN: Soft, nontender, nondistended, normoactive bowel sounds. No palpable organomegaly. MUSCULOSKELETAL: No joint swelling or deformity. EXTREMITIES: No cyanosis, clubbing, or pedal edema. She has right AKA NEUROLOGICAL: Does have generalized weakness no focal weakness SKIN: No rashes. Results CBC & Chem 7: 03/14/20 09:25 03/14/20 02:38 Labs: Abnormal Lab Results - Last 24 Hours (Table) 03/13/20 03/13/20 03/13/20 Range/Units 19:59 19:59 19:59 RBC 3.15 L (3.80-5.40) m/uL Hgb 9.9 L (11.4-16.0) gm/dL Hct 31.1 L (34.0-46.0) % MCV (80.0-100.0) fL RDW 16.7 H (11.5-15.5) % Plt Count (150-450) k/uL Lymphocytes # 0.5 L (1.0-4.8) k/uL Lymphocytes # (Manual) (1.0-4.8) k/uL APTT (22.0-30.0) sec Potassium (3.5-5.1) mmol/L BUN 63 H (7-17) mg/dL Glucose 116 H (74-99) mg/dL POC Glucose (mg/dL) (75-99) mg/dL Plasma Lactic Acid Mitchell (0.7-2.0) mmol/L Calcium (8.4-10.2) mg/dL Phosphorus 5.0 H (2.5-4.5) mg/dL Troponin I 0.121 H* (0.000-0.034) ng/mL Total Protein 5.3 L (6.3-8.2) g/dL Albumin 2.9 L (3.5-5.0) g/dL Ur Specific [place] (1.001-1.035) Urine Protein (Negative) Stool Occult Blood (Negative) 03/13/20 03/13/20 03/13/20 Range/Units 19:59 20:29 23:16 RBC (3.80-5.40) m/uL Hgb (11.4-16.0) gm/dL Hct (34.0-46.0) % MCV (80.0-100.0) fL RDW (11.5-15.5) % Plt Count (150-450) k/uL Lymphocytes # (1.0-4.8) k/uL Lymphocytes # (Manual) (1.0-4.8) k/uL APTT 19.6 L (22.0-30.0) sec Potassium (3.5-5.1) mmol/L BUN (7-17) mg/dL Glucose (74-99) mg/dL POC Glucose (mg/dL) (75-99) mg/dL Plasma Lactic Acid Mitchell 2.7 H* (0.7-2.0) mmol/L Calcium (8.4-10.2) mg/dL Phosphorus (2.5-4.5) mg/dL Troponin I (0.000-0.034) ng/mL Total Protein (6.3-8.2) g/dL Albumin (3.5-5.0) g/dL Ur Specific [place] (1.001-1.035) Urine Protein (Negative) Stool Occult Blood Positive H (Negative) 03/13/20 03/13/20 03/13/20 Range/Units 23:16 23:17 23:17 RBC 2.89 L (3.80-5.40) m/uL Hgb 9.5 L (11.4-16.0) gm/dL Hct 29.0 L (34.0-46.0) % MCV 100.1 H (80.0-100.0) fL RDW 16.8 H (11.5-15.5) % Plt Count (150-450) k/uL Lymphocytes # (1.0-4.8) k/uL Lymphocytes # (Manual) 0.57 L (1.0-4.8) k/uL APTT 50.4 H (22.0-30.0) sec Potassium (3.5-5.1) mmol/L BUN (7-17) mg/dL Glucose (74-99) mg/dL POC Glucose (mg/dL) (75-99) mg/dL Plasma Lactic Acid Mitchell (0.7-2.0) mmol/L Calcium (8.4-10.2) mg/dL Phosphorus (2.5-4.5) mg/dL Troponin I (0.000-0.034) ng/mL Total Protein (6.3-8.2) g/dL Albumin (3.5-5.0) g/dL Ur Specific [place] >1.050 H (1.001-1.035) Urine Protein Trace H (Negative) Stool Occult Blood (Negative) 03/14/20 03/14/20 03/14/20 Range/Units 01:45 02:32 02:38 RBC 2.80 L (3.80-5.40) m/uL Hgb 9.2 L (11.4-16.0) gm/dL Hct 28.0 L (34.0-46.0) % MCV (80.0-100.0) fL RDW 16.6 H (11.5-15.5) % Plt Count (150-450) k/uL Lymphocytes # 0.4 L (1.0-4.8) k/uL Lymphocytes # (Manual) (1.0-4.8) k/uL APTT (22.0-30.0) sec Potassium (3.5-5.1) mmol/L BUN (7-17) mg/dL Glucose (74-99) mg/dL POC Glucose (mg/dL) 164 H (75-99) mg/dL Plasma Lactic Acid Mitchell 2.4 H* (0.7-2.0) mmol/L Calcium (8.4-10.2) mg/dL Phosphorus (2.5-4.5) mg/dL Troponin I (0.000-0.034) ng/mL Total Protein (6.3-8.2) g/dL Albumin (3.5-5.0) g/dL Ur Specific [place] (1.001-1.035) Urine Protein (Negative) Stool Occult Blood (Negative) 03/14/20 03/14/20 Range/Units 02:38 09:25 RBC 2.71 L (3.80-5.40) m/uL Hgb 8.7 L (11.4-16.0) gm/dL Hct 27.1 L (34.0-46.0) % MCV (80.0-100.0) fL RDW 16.5 H (11.5-15.5) % Plt Count 140 L (150-450) k/uL Lymphocytes # 0.3 L (1.0-4.8) k/uL Lymphocytes # (Manual) (1.0-4.8) k/uL APTT (22.0-30.0) sec Potassium 3.1 L (3.5-5.1) mmol/L BUN 55 H (7-17) mg/dL Glucose 132 H (74-99) mg/dL POC Glucose (mg/dL) (75-99) mg/dL Plasma Lactic Acid Mitchell (0.7-2.0) mmol/L Calcium 8.1 L (8.4-10.2) mg/dL Phosphorus (2.5-4.5) mg/dL Troponin I (0.000-0.034) ng/mL Total Protein (6.3-8.2) g/dL Albumin (3.5-5.0) g/dL Ur Specific [place] (1.001-1.035) Urine Protein (Negative) Stool Occult Blood (Negative) Assessment and Plan Plan: -Atrial tachycardia, mostly SVT cardiac rate controlled mentioned, medications cardiology evaluated the patient. -Possibility of dementia which appears to be advanced and maybe Alzheimer's. -Possible lung cancer adenocarcinoma patient had history of lung cancer in the past which was treated in 2016 -Moderate protein calorie malnutrition -Severe peripheral vascular disease with multiple thrombosis and grafts in the past -Ruled out GI bleed -Possible dehydration can you with IV fluids at 60 mL/h -Extreme poor functionality and poor quality of life mostly bedbound fpc. I'll discuss with daughter regarding her overall goals of care patient prognosis is extremely poor patient is more appropriate for hospice or comfort care any aggressive care in her situation will be futile care.
[2020-03-14] MEDS: MORPHINE SULFATE 2 MG/ML SYRINGE IVP PRN ×2 (18:47→20:57)
[2020-03-14] MEDS: AMIODARONE 360 MG in DEXTROSE 5% IN WATER 200 ML IV SCH ×2 (21:00)
[2020-03-15] MEDS: AMIODARONE 360 MG in DEXTROSE 5% IN WATER 200 ML IV SCH ×4 (02:32→09:23)
[2020-03-15] MEDS: MORPHINE SULFATE 2 MG/ML SYRINGE IVP PRN ×2 (03:58→09:00)
[2020-03-15 04:40] LABS: Anisocytosis Slight; Basophils % (A) 0 %; Eosinophils # (A) 0.1 k/uL (0-0.7); Eosinophils % (A) 1 %; HCT 27.4 % (34.0-46.0); Lymphocytes # (A) 0.3 k/uL (1.0-4.8); Lymphocytes % (A) 5 %; MCH 32.9 pg (25.0-35.0); MCHC 32.9 g/dL (31.0-37.0); MCV 99.8 fL (80.0-100.0); Macrocytosis Slight; Mean Platelet Volume 8.8; Monocytes # (A) 0.3 k/uL (0-1.0); Monocytes % (A) 4 %; Neutrophils # (A) 5.7 k/uL (1.3-7.7); Neutrophils % (A) 89 %; Platelet Count 142 k/uL (150-450); RBC 2.74 m/uL (3.80-5.40); RDW 16.6 % (11.5-15.5); WBC 6.3 k/uL (3.8-10.6)
[2020-03-15 04:42] LABS: African American GFR (CKD) >90 (>60 ml/min/1.73 sqM); Anion Gap 3 mmol/L; Blood Urea Nitrogen 20 mg/dL (7-17); Calcium 8.1 mg/dL (8.4-10.2); Carbon Dioxide 23 mmol/L (22-30); Chloride 110 mmol/L (98-107); Glucose 91 mg/dL (74-99); Non-African American GFR(CKD) >90 (>60 ml/min/1.73 sqM); Potassium 3.4 mmol/L (3.5-5.1); Sodium 136 mmol/L (137-145)
[2020-03-15] MEDS ORDERED: DEXTROSE 5% IN WATER 100 ML with AMIODARONE 150 MG IV ONE (07:00)
[2020-03-15] MEDS ORDERED: Potassium Replacement Protocol 1 EACH MISC MISCELLANE PRN (07:13)
--- NOTE | 2020-03-15 08:48 | CONS ---
CONSULTATION DATE OF SERVICE: 03/14/2020. REQUESTING PHYSICIAN: Dr. Lewis. REASON FOR CONSULTATION: Rectal bleeding. HISTORY OF PRESENT ILLNESS: The patient is a 70-year-old pleasant white female in who was transferred from [facility] complaining of abdominal pain and rectal bleeding that started two days ago. The patient was brought to the emergency room by the long-term staff and apparently in the ER she was noted to have severe ( ) and tachycardia and subsequently underwent cardioversion and was started on amiodarone drip. She is admitted to the intensive care unit for close monitoring. The patient is extremely poor historian. Most of the history was obtained from the patient's chart and nursing staff taking care of her. Apparently while she was in the long-term she had some rectal bleeding. The patient has history of fecal incontinence. She was diagnosed with colorectal neoplasia in 2017, underwent neoadjuvant radiation and chemotherapy followed by surgery and since then she has been having fecal incontinence. Since admission to the hospital, the patient had brown colored stools with small streaks of bright red blood per rectum. In the emergency room, she did have a CT of the abdomen and pelvis done that showed anterior chest wall mass consistent with prior history of cancer. Also, was noted to have thrombosis of the subclavian artery and occlusion of the ileofemoral bypass graft. PAST MEDICAL HISTORY: Significant for hypertension, dementia. PAST SURGICAL HISTORY: Colon cancer status post chemo radiation in 2016. History of lung cancer with metastasis. Severe peripheral vascular disease requiring multiple surgeries. MEDICATIONS: At the long-term include Tylenol, aspirin, Lipitor, Dulcolax, Coreg, Aricept, Ensure, Imodium, magnesium oxide, megestrol, Norvasc, PhosLo. ALLERGIES: None. SOCIAL HISTORY: No history of smoking. FAMILY HISTORY: Unremarkable. REVIEW OF SYSTEMS: Could not be obtained as patient is a very, very poor historian and does not answer questions. PHYSICAL EXAMINATION: She appears comfortable, no apparent distress. VITAL SIGNS: Stable. Blood pressure was 104/74, pulse rate 101, temperature 98, respirations 26. HEENT examination unremarkable. Conjunctivae pink. Sclerae anicteric. Oral cavity, no lesions. NECK: No JVD or lymph node enlargement. CHEST: Clear to auscultation. HEART: Regular rate and rhythm. ABDOMEN: There was mild diffuse tenderness noted throughout the abdomen. EXTREMITIES: No pedal edema. NEURO: She is awake. No focal deficits noted. SKIN: No rashes. LAB DATA: Hemoglobin 8.7, WBC 5.1, platelets 140. Sodium 137, potassium 3.1, chloride 104, CO2 is 26, BUN 55, creatinine 0.67, troponin 0.121. IMPRESSION: 1. Rectal bleeding for the last two days duration. As per the nursing staff the patient had brown colored stool with small streaks of blood noted today. No significant active bleeding. She has anemia. Hemoglobin is stable at 8.6 g/dL. 2. Atrial tachycardia/supraventricular tachycardia. Cardiology consulted. She is presently on amiodarone drip. 3. History of lung cancer with metastasis. Recent CT scan showed anterior chest wall mass. 4. History of severe peripheral vascular disease, being evaluated by vascular surgery today. RECOMMENDATIONS: In regard to the GI bleed, we will continue to monitor her closely. Obtain CBC tomorrow morning. No plans on any endoscopic intervention at the present time. Continue management as per the umbrella repairer. We will follow with you closely. Thank you for this consultation. MMODL / IJN: [id number] /
[2020-03-15] MEDS: POTASSIUM CHLORIDE 10 MEQ in WATER FOR INJECTION 1 100ML.BAG IVPB SCH ×3 (09:00→12:08)
[2020-03-15] MEDS: METOPROLOL TARTRATE 50 MG TAB PO SCH (09:01)
--- NOTE | 2020-03-15 11:03 | PN ---
PROGRESS NOTE DATE OF DICTATION: March 15, 2020 Patient is a 70-year-old pleasant white female admitted from the [facility] because of tachycardia, hypertension, and some rectal bleeding. As per the nursing staff, she did not have any further episodes of bleeding since being in the hospital. She still has fecal incontinence. She reports no abdominal pain. Patient is a very poor historian. Most of the history was obtained from the nursing staff caring for her. As per the nursing staff, they are considering hospice care and awaiting a call from the family. PHYSICAL EXAMINATION: She appears comfortable. Vital signs show a blood pressure of 137/63, pulse rate 80, temperature 97.6. HEENT examination unremarkable. Conjunctivae pink. Sclerae anicteric. Oral cavity no lesions. NECK no JVD. CHEST: Clear to auscultation. HEART: Regular rate and rhythm. ABDOMEN: Slightly diffuse, tender. EXTREMITIES: Right above-knee amputation. NEUROLOGIC: Awake, but not oriented to name or place. LABS: From today WBC 6.3, hemoglobin 9, platelets 142. Basic metabolic panel is within normal limits. Potassium is 3.4, BUN 20, creatinine 0.58. IMPRESSION: 1. Cardiac arrhythmia with atrial tachycardia presently heart rate is controlled. 2. History of lung cancer with possible metastasis. 3. Rectal bleeding, resolved. History of colorectal neoplasia diagnosed in 2016, status post chemoradiation followed by surgery. 4. Fecal incontinence. 5. Protein energy malnutrition. RECOMMENDATIONS: 1. Continue with symptomatic and supportive care. 2. Monitor CBC daily. 3. Continue Protonix 40 mg daily. 4. No plans on any endoscopy intervention at the present time. 5. We will follow with you closely. Thank you for this consultation. MMODL / IJN: [id number] /
--- NOTE | 2020-03-15 11:21 | P.GSCN ---
History of Present Illness Consult date: 03/15/20 Reason for Consult: Abdominal pain, GI bleed History of present illness: This a 70-year-old female with multiple comorbidities. The patient had some abdominal pain and some GI bleed. Per the nursing staff she's had no further GI bleed. The patient is completely bedbound. She has a right AKA. She is unable to give any medical history. Apparently she may be made hospice. Past Medical History Past Medical History: Dementia, Hypertension Additional Past Medical History / Comment(s): AAA, neoplasm of lung, rectum, rectosigmoid junction and anus, chemo and radiation 2015, cognitive communication defects. PVD History of Any Multi-Drug Resistant Organisms: MRSA Year Discovered:: 06/22/16 MDRO Source:: RIGHT ARM Additional Past Surgical History / Comment(s): R AKA Smoking Status: Never smoker Medications and Allergies Home Medications Medication Instructions Recorded Confirmed Type Acetaminophen [Tylenol] 650 mg PO QID PRN 03/13/20 03/13/20 History Aspirin 81 mg PO DAILY@169903/13/20 03/13/20 History Atorvastatin [Lipitor] 20 mg PO HS@209903/13/20 03/13/20 History Bisacodyl [Dulcolax] 10 mg RECTAL DAILY PRN 03/13/20 03/13/20 History Carvedilol [Coreg] 3.125 mg PO BID@0800,209903/13/20 03/13/20 History Donepezil HCl [Aricept] 5 mg PO HS@209903/13/20 03/13/20 History Lactose-Reduced Food [Ensure Plus] 1 can PO DAILY@0800 03/13/20 03/13/20 History Loperamide [Imodium] 2 mg PO DIRECTED PRN 03/13/20 03/13/20 History Magic Cup 1 each PO DAILY@0 03/13/20 03/13/20 History Magnesium Hydroxide [Milk of 7,200 mg PO DAILY PRN 03/13/20 03/13/20 History Magnesia Concentrate] Megestrol Acetate 400 mg PO BID@0800,1700 03/13/20 03/13/20 History Na Phos,M-B/Na Phos,Di-Ba [Fleet 133 ml RECTAL DAILY PRN 03/13/20 03/13/20 History Adult] amLODIPine [Norvasc] 5 mg PO DAILY@0800 03/13/20 03/13/20 History Allergies Allergy/AdvReac Type Severity Reaction Status Date / Time No Known Allergies Allergy Verified 03/13/20 20:49 Surgical - Exam Vital Signs Temp Pulse Resp BP Pulse Ox 97.7 F 246 H 26 H 134/63 92 L 03/13/20 19:42 03/13/20 19:42 03/13/20 19:42 03/13/20 19:42 03/13/20 19:42 - General chronically ill - Abdomen Minimal tenderness there is no rebound or guarding Abdomen: soft Results - Labs 03/15/20 03:49 03/15/20 03:49 Abnormal Lab Results - Last 24 Hours (Table) 03/15/20 03/15/20 Range/Units 03:49 03:49 RBC 2.74 L (3.80-5.40) m/uL Hgb 9.0 L (11.4-16.0) gm/dL Hct 27.4 L (34.0-46.0) % RDW 16.6 H (11.5-15.5) % Plt Count 142 L (150-450) k/uL Lymphocytes # 0.3 L (1.0-4.8) k/uL Sodium 136 L (137-145) mmol/L Potassium 3.4 L (3.5-5.1) mmol/L Chloride 110 H (98-107) mmol/L BUN 20 H (7-17) mg/dL Calcium 8.1 L (8.4-10.2) mg/dL Microbiology - Last 24 Hours (Table) 03/13/20 23:35 Blood Culture - Preliminary Blood No Growth after 24 hours Diabetes panel 03/15/20 Range/Units 03:49 Sodium 136 L (137-145) mmol/L Potassium 3.4 L (3.5-5.1) mmol/L Chloride 110 H (98-107) mmol/L Carbon Dioxide 23 (22-30) mmol/L BUN 20 H (7-17) mg/dL Creatinine 0.53 (0.52-1.04) mg/dL Glucose 91 (74-99) mg/dL Calcium 8.1 L (8.4-10.2) mg/dL Calcium panel 03/15/20 Range/Units 03:49 Calcium 8.1 L (8.4-10.2) mg/dL Pituitary panel 03/15/20 Range/Units 03:49 Sodium 136 L (137-145) mmol/L Potassium 3.4 L (3.5-5.1) mmol/L Chloride 110 H (98-107) mmol/L Carbon Dioxide 23 (22-30) mmol/L BUN 20 H (7-17) mg/dL Creatinine 0.53 (0.52-1.04) mg/dL Glucose 91 (74-99) mg/dL Calcium 8.1 L (8.4-10.2) mg/dL Adrenal panel 03/15/20 Range/Units 03:49 Sodium 136 L (137-145) mmol/L Potassium 3.4 L (3.5-5.1) mmol/L Chloride 110 H (98-107) mmol/L Carbon Dioxide 23 (22-30) mmol/L BUN 20 H (7-17) mg/dL Creatinine 0.53 (0.52-1.04) mg/dL Glucose 91 (74-99) mg/dL Calcium 8.1 L (8.4-10.2) mg/dL Assessment and Plan Assessment: Questional GI bleed. The patient has multiple comorbidities. The patient will be observed for now until her hospice situation is resolved.
[2020-03-15] MEDS: SODIUM CHLORIDE 0.9% 1,000 ML IV SCH (12:09)
[2020-03-15 12:20] VITALS: TEMP 97.5
--- NOTE | 2020-03-15 13:18 | P.PN ---
Subjective 70-year-old female was sent in because of the complains of abdominal pain unable to get much of the history patient is externally poor historian patient later in the ER found to have increased heart rate of to 40 bpm appears to be sober and to tachycardia and did undergo cardioversion and did receive amiodarone and remained on amiodarone drip. Patient has multiple other medical issues going on patient appears to be completely bedbound had right below-knee amputation and workup revealed a severe iron 3 occlusive disease and thrombosed axillofemoral bypass graft. Patient doesn't have any blood in the stools dark stools but to have stool occult was positive there is no evidence of GI bleed at this time. Patient had an abdominal computed tomography scan which showed worsening mass in the chest. Which is consistent with lung cancer. Patient had history of lung cancer in 2016 with the metastatic disease patient was initially on heparin which was subsequently discontinued vascular surgery did not recommend any heparin and patient didn't seem to be in A. fib with rather him to be in the supra SVT and heart rate in 240s is consistent with SVT. His no evidence of acute GI bleed at this time. 03/15/2020 Patient is bit less dehydrated and looks bit better but still just mumbling and wants is to get up to go urinate in spite of her Col[place] catheter. A lengthy discussion with the daughter yesterday evening constrain her up poor func tionality and possibility of recurrence of her lung cancer and poor prognosis, daughter is agreeable for hospice and hospice will evaluate the patient today. We have systems: Unable to obtain due to her clinical condition All inpatient medications were reviewed and appropriate changes in these med ications as dictated in the interval history and assessment and plan. Objective - Vital Signs Vital signs: Vital Signs Temp 97.5 F L 03/15/20 12:00 Pulse 67 03/15/20 12:00 Resp 28 H 03/15/20 12:00 BP 101/48 03/15/20 12:00 Pulse Ox 91 L 03/15/20 12:00 Intake & Output 03/14/20 03/15/20 03/15/20 18:59 06:59 18:59 Intake Total 1310 904.443 860 Output Total 570 625 230 Balance 740 279.443 630 Weight 44.9 kg 42.4 kg Intake: IV 660 720 660 Potassium Chloride 10 meq 300 In Water For Injection 1 100ml.bag @ 100 mls/hr IVPB Q1HR [facility] Rx#: [id number] Sodium Chloride 0.9% 1, 660 720 360 000 ml @ 60 mls/hr IV . [id number] [facility] Rx#:[id number] Intake, IV Titration 650 184.443 200 Amount Amiodarone 300 mg In 250 Dextrose 5% in Water 250 ml @ 1 MG/MIN 50 mls/hr IV .Q5H [facility] Rx#:[id number] Amiodarone 360 mg In 184.443 200 Dextrose 5% in Water 200 ml @ 1 MG/MIN 33.333 mls/ hr IV .Q6H [facility] Rx#: [id number] Potassium Chloride 10 meq 400 In Water For Injection 1 100ml.bag @ 100 mls/hr IVPB Q1HR [facility] Rx#: [id number] Output: Urine 570 625 230 Other: Voiding Method Indwelling Catheter Indwelling Catheter Indwelling Catheter - Exam PHYSICAL EXAMINATION: GENERAL: Patient appears to be tight fatigued alert and unable assess orientation thin built HEENT: Pupils are round and equally reacting to light. EOMI. No scleral icterus. No conjunctival pallor. Normocephalic, atraumatic. No pharyngeal erythema. No thyromegaly. CARDIOVASCULAR: S1 and S2 present. No murmurs, rubs, or gallops. PULMONARY: Chest is clear to auscultation, no wheezing or crackles. ABDOMEN: Soft, nontender, nondistended, normoactive bowel sounds. No palpable organomegaly. MUSCULOSKELETAL: No joint swelling or deformity. EXTREMITIES: No cyanosis, clubbing, or pedal edema. She has right AKA NEUROLOGICAL: Does have generalized weakness no focal weakness SKIN: No rashes. - Labs CBC & Chem 7: 03/15/20 03:49 03/15/20 03:49 Labs: Abnormal Lab Results - Last 24 Hours (Table) 03/15/20 03/15/20 Range/Units 03:49 03:49 RBC 2.74 L (3.80-5.40) m/uL Hgb 9.0 L (11.4-16.0) gm/dL Hct 27.4 L (34.0-46.0) % RDW 16.6 H (11.5-15.5) % Plt Count 142 L (150-450) k/uL Lymphocytes # 0.3 L (1.0-4.8) k/uL Sodium 136 L (137-145) mmol/L Potassium 3.4 L (3.5-5.1) mmol/L Chloride 110 H (98-107) mmol/L BUN 20 H (7-17) mg/dL Calcium 8.1 L (8.4-10.2) mg/dL Microbiology - Last 24 Hours (Table) 03/13/20 23:35 Blood Culture - Preliminary Blood No Growth after 24 hours Assessment and Plan Plan: -Atrial tachycardia, mostly SVT cardiac rate controlled mentioned, medications cardiology evaluated the patient. -Possibility of dementia which appears to be advanced and maybe Alzheimer's. -Possible lung cancer adenocarcinoma patient had history of lung cancer in the past which was treated in 2016 -Moderate protein calorie malnutrition -Severe peripheral vascular disease with multiple thrombosis and grafts in the past -Ruled out GI bleed -Possible dehydration can you with IV fluids at 60 mL/h -Extreme poor functionality and poor quality of life mostly bedbound half-way. Patient probably will be hospice later today hospice is in the process of making a plan for her with the help of her daughter.
[2020-03-15 13:24] VITALS: BP 94/69; PULSE 73; RESP 31
--- NOTE | 2020-03-17 10:58 | P.DS ---
Providers Date of admission: 03/14/20 01:11 Expected date of discharge: 03/15/20 Attending physician: Carlo Spaulding Consults: 03/13/20 23:52 Consult Physician Stat Consulting Provider: Jus Dawson Consult Reason/Comments: vascular Do you want consulting provider notified?: Yes Consult Physician Urgent Consulting Provider: Felix Mora Consult Reason/Comments: Tachydysrhythmia Do you want consulting provider notified?: Yes Consult Physician Urgent Consulting Provider: Ivan Shukla Consult Reason/Comments: Tachydysrhythmia Do you want consulting provider notified?: Yes 03/14/20 08:28 Consult Physician Routine Consulting Provider: Cyn Bridges Consult Reason/Comments: positive occult Do you want consulting provider notified?: Yes 03/14/20 09:25 Consult Physician Stat Consulting Provider: Matthew Khan Consult Reason/Comments: EGD results Do you want consulting provider notified?: Yes Primary care physician: [facility] Course: Patient was made hospice and was switched to inpatient hospice. Please refer to progress note from same day for further details Patient Condition at Discharge: Serious Plan - Discharge Summary Discharge Rx Participant: Yes New Discharge Prescriptions: No Action Loperamide [Imodium] 2 mg PO DIRECTED PRN PRN Reason: Loose Stool Na Phos,M-B/Na Phos,Di-Ba [Fleet Adult] 133 ml RECTAL DAILY PRN PRN Reason: Constipation Bisacodyl [Dulcolax] 10 mg RECTAL DAILY PRN PRN Reason: Constipation Acetaminophen [Tylenol] 650 mg PO QID PRN PRN Reason: Pain Megestrol Acetate 400 mg PO BID@0800,1700 Carvedilol [Coreg] 3.125 mg PO BID@0800,2100 Magic Cup 1 each PO DAILY@1700 Lactose-Reduced Food [Ensure Plus] 1 can PO DAILY@0800 Atorvastatin [Lipitor] 20 mg PO HS@2100 Aspirin 81 mg PO DAILY@1700 Donepezil HCl [Aricept] 5 mg PO HS@2100 amLODIPine [Norvasc] 5 mg PO DAILY@0800 Magnesium Hydroxide [Milk of Magnesia Concentrate] 7,200 mg PO DAILY PRN PRN Reason: Constipation Discharge Medication List Acetaminophen [Tylenol] 650 mg PO QID PRN 03/13/20 [History] Aspirin 81 mg PO DAILY@169903/13/20 [History] Atorvastatin [Lipitor] 20 mg PO HS@209903/13/20 [History] Bisacodyl [Dulcolax] 10 mg RECTAL DAILY PRN 03/13/20 [History] Carvedilol [Coreg] 3.125 mg PO BID@0800,209903/13/20 [History] Donepezil HCl [Aricept] 5 mg PO HS@209903/13/20 [History] Lactose-Reduced Food [Ensure Plus] 1 can PO DAILY@0803/13/20 [History] Loperamide [Imodium] 2 mg PO DIRECTED PRN 03/13/20 [History] Magic Cup 1 each PO DAILY@169903/13/20 [History] Magnesium Hydroxide [Milk of Magnesia Concentrate] 7,200 mg PO DAILY PRN 03/13/20 [History] Megestrol Acetate 400 mg PO BID@0800,169903/13/20 [History] Na Phos,M-B/Na Phos,Di-Ba [Fleet Adult] 133 ml RECTAL DAILY PRN 03/13/20 [History] amLODIPine [Norvasc] 5 mg PO DAILY@0803/13/20 [History] Follow up Appointment(s)/Referral(s): Carlo Spaulding MD [Primary Care Provider] - 1-2 days Discharge Disposition: DISCH TO HOSPICE MED FACILTY
--- NOTE | 2020-03-18 07:23 | CDI ---
Documentation Clarification Form Date: From: Destinee Bergeron Phone: If you have a question about this query, please contact Val Liu, Driver Salesman at [phone] between 8am and 5pm. Admit Date: 03/14/20 Discharge Date: 03/15/20 Patient Name: LYUBOV QUACH Visit Number: [id number] ATTENTION: The Clinical Documentation Specialists (CDI) and [facility] Coding Staff appreciate your assistance in clarifying documentation. Please respond to the clarification below the line at the bottom and electronically sign. The CDI & [facility] Coding staff will review the response and follow-up if needed. Please note: Queries are made part of the Legal Health Record. If you have any questions, please contact the author of this message via ITS. Dear Atrial Fibrillation is documented in the ED note and your consult. History/Risk Factors: Hypertensive HTN, thrombosis due to vascular graft, occlusion of iliac arteries, mod PCM, cardiomyopathy, pulmonary HTN, Alzheimer's dementia, R-AKA, COPD Clinical Indicators: ED-Initial monitor reading was concerning for ventricular tachycardia versus atrial fibrillation with abberrancy. Cardioversion - patient reverted back to tachydysrrhythma, repeat cardioversion. She maintained sinus rhythm for approximately 15 minutes then reverted back to tachydysrhythmia. Per H&P- patient didn't seem to be in A. fib with rather him to be in the supra SVT and heart rate in 240s is consistent with SVT. 03/14 EKG/telemetry: 1) ventricular rate to 46, QRS 174, QT/QTc 170/343.White complex tachycardia, ventricular tachycardia. 2) ventricular rate 100.Full ID 8, QRS 64, QT/QTC 3:30/425.Sensory in the short NM and PAC.Left ventricular hypertrophy with repolarization abnormality. 3) ventricular rate 91, painful 98, QRS 72, QT/QTC 322/396.Sinus rhythm with short NM. Left ventricle hypertrophy with repolarization abnormality. Treatment: cardioversion, Amiodarone IV, Heparin, In your professional opinion, can you please clarify the type of Atrial Fibrillation, if known? SVT, no atrial fibrillation Chronic Permanent Paroxysmal Persistent, longstanding Persistent, other Persistent, permanent Other, please specify Unable to determine MTDD
== END 2020-03-15 13:45 | disposition hospice, inpatient (51) | DRG 309 ==
LOC: EC 19:28 → 2SICU 03-14 01:11
PROVIDERS: ADMIT Family Medicine; ATTEND Family Medicine
PROC: 5A2204Z Restoration of Cardiac Rhythm, Single (ICD-10-PCS; principal; 2020-03-14)
DX: I47.1 Supraventricular tachycardia (principal); T82.868A Thrombosis due to vascular prosthetic devices, implants and grafts, initial encounter; I74.5 Embolism and thrombosis of iliac artery; E44.0 Moderate protein-calorie malnutrition; R64 Cachexia; Z68.1 Body mass index [BMI] 19.9 or less, adult; I42.9 Cardiomyopathy, unspecified; K92.2 Gastrointestinal hemorrhage, unspecified; I27.20 Pulmonary hypertension, unspecified; I48.0 Paroxysmal atrial fibrillation; G30.9 Alzheimer's disease, unspecified; F02.80 Dementia in other diseases classified elsewhere, unspecified severity, without behavioral disturbance, psychotic disturbance, mood disturbance, and anxiety; Z89.611 Acquired absence of right leg above knee; I73.9 Peripheral vascular disease, unspecified; J44.9 Chronic obstructive pulmonary disease, unspecified; I71.4 Abdominal aortic aneurysm, without rupture; Z51.5 Encounter for palliative care; Z11.59 Encounter for screening for other viral diseases; I11.9 Hypertensive heart disease without heart failure; I25.10 Atherosclerotic heart disease of native coronary artery without angina pectoris; E86.0 Dehydration; E87.6 Hypokalemia; R15.9 Full incontinence of feces; D64.9 Anemia, unspecified; R22.2 Localized swelling, mass and lump, trunk; Z79.82 Long term (current) use of aspirin; Z79.818 Long term (current) use of other agents affecting estrogen receptors and estrogen levels; Z79.899 Other long term (current) drug therapy; Z86.14 Personal history of Methicillin resistant Staphylococcus aureus infection; Z74.01 Bed confinement status; Z71.3 Dietary counseling and surveillance; Z92.21 Personal history of antineoplastic chemotherapy; Z92.3 Personal history of irradiation; Z85.038 Personal history of other malignant neoplasm of large intestine; Z85.118 Personal history of other malignant neoplasm of bronchus and lung; Z98.890 Other specified postprocedural states; Z90.49 Acquired absence of other specified parts of digestive tract
CPT/HCPCS: 36415; 70450; 71260; 74177; 80048; 80053; 81003; 82272; 83605; 83735; 84100; 84443; 84484; 85025; 85027; 85610; 85730; 87040; 87635; 92960; 93005; 96365; 96366; 96368; 96376; 99291

== ENCOUNTER 2020-03-15 13:48 | Inpatient (IN) | payer MEDICAID ==
[2020-03-15] MEDS ORDERED: ONDANSETRON 4 MG/2 ML VIAL IVP PRN (13:57)
[2020-03-15] MEDS ORDERED: ATROPINE OPHTH SOLN 1% 5ML BTL SUBLINGUAL PRN (13:57)
[2020-03-15] MEDS ORDERED: BISACODYL 10 MG SUPP RECTAL PRN (14:02)
[2020-03-15] MEDS ORDERED: ACETAMINOPHEN SUPPOSITORY 650 MG SUPP RECTAL PRN (14:04)
[2020-03-15] MEDS: MORPHINE SULFATE 2 MG/ML SYRINGE IV PRN ×4 (14:47→23:09)
[2020-03-15] MEDS: LORazepam 2 MG/ML INJ IV PRN (22:58)
[2020-03-16] MEDS: LORazepam 2 MG/ML INJ IV PRN ×2 (06:01→18:28)
--- NOTE | 2020-03-16 16:20 | P.HPIM ---
History of Present Illness H&P Date: 03/16/20 This is a 70-year-old female was recently admitted with complaints of abdominal pain and increased heart rate and recently underwent cardioversion and was placed on amiodarone drip. Patient has multiple complex medical issues and is currently completely bedbound with a right below the knee amputation and also has severe occlusive disease with a thrombosed axillobifemoral bypass graft. Patient recently underwent an abdominal CT showing worsening mass in the chest which is consistent with lung cancer. Patient has a history of lung cancer in 2016 with metastatic disease. Patient's heart rate was consistent with SVT. Patient also noted to have dehydration and confused at times. A lengthy di scussion was had with family members and due to her poor functionality and possibility of recurrence of the lung cancer and poor prognosis the family has requested for hospice with [facility]. Patient is being transitioned to hospice care. Review of Systems Unable to obtain due to her clinical condition Past Medical History Past Medical History: Cancer, Dementia, Hypertension Additional Past Medical History / Comment(s): AAA, neoplasm of lung, rectum, rectosigmoid junction and anus, chemo and radiation 2016, cognitive communication defects. PVD History of Any Multi-Drug Resistant Organisms: MRSA Date of last positivie culture/infection: 06/22/16 MDRO Source:: RIGHT ARM Additional Past Surgical History / Comment(s): R AKA Smoking Status: Never smoker Medications and Allergies Home Medications Medication Instructions Recorded Confirmed Type Acetaminophen [Tylenol] 650 mg PO QID PRN 03/13/20 03/15/20 History Aspirin 81 mg PO DAILY@1700 03/13/20 03/15/20 History Atorvastatin [Lipitor] 20 mg PO HS@209903/13/20 03/15/20 History Bisacodyl [Dulcolax] 10 mg RECTAL DAILY PRN 03/13/20 03/15/20 History Carvedilol [Coreg] 3.125 mg PO BID@0800,209903/13/20 03/15/20 History Donepezil HCl [Aricept] 5 mg PO HS@209903/13/20 03/15/20 History Lactose-Reduced Food [Ensure Plus] 1 can PO DAILY@0800 03/13/20 03/15/20 History Loperamide [Imodium] 2 mg PO DIRECTED PRN 03/13/20 03/15/20 History Magic Cup 1 each PO DAILY@1700 03/13/20 03/15/20 History Magnesium Hydroxide [Milk of 7,200 mg PO DAILY PRN 03/13/20 03/15/20 History Magnesia Concentrate] Megestrol Acetate 400 mg PO BID@0800,1700 03/13/20 03/15/20 History Na Phos,M-B/Na Phos,Di-Ba [Fleet 133 ml RECTAL DAILY PRN 03/13/20 03/15/20 History Adult] amLODIPine [Norvasc] 5 mg PO DAILY@0800 03/13/20 03/15/20 History Allergies Allergy/AdvReac Type Severity Reaction Status Date / Time No Known Allergies Allergy Verified 03/13/20 20:49 Physical Exam Vitals: Vital Signs Temp Pulse Pulse Resp BP Pulse Ox 03/16/20 11:15 101 H 20 100 03/16/20 05:00 110 H 20 94 L 03/15/20 23:00 97.8 F 91 20 146/67 98 Intake and Output 03/16/20 03/16/20 03/16/20 06:59 14:59 22:59 Intake Total 0 0 Output Total 0 Balance 0 0 Intake: Oral 0 0 Output: Urine 0 Other: Voiding Method Indwelling Catheter Indwelling Catheter Gen: This is a 70-year-old female lying in bed, somnolent, not responding to any verbal commands with occasional moaning, thin built HEENT: Head is atraumatic, normocephalic. Pupils equal, round. Sclerae is anicteric. Mucous membranes are dry NECK: Supple. No JVD. No lymphadenopathy. No thyromegaly. LUNGS: Clear to auscultation. No wheezes or rhonchi. No intercostal retractions. HEART: S1, S2 are present. No murmurs, rubs, or gallops noted ABDOMEN: Soft. Thin. Hypoactive bowel sounds noted. No masses. No tenderness. EXTREMITIES: No pedal edema. No calf tenderness. Right AKA noted NEUROLOGICAL: Patient is asleep, alert and oriented x0. non-verbal, Somnolent Assessment and Plan Assessment: -Atrial tachycardia, mostly SVT -Possibility of dementia which appears to be advanced and possibly Alzheimer's -Moderate protein calorie malnutrition -Possible lung cancer adenocarcinoma, patient has history of lung cancer in 2016 which was treated -Severe peripheral vascular disease with multiple thrombosis and grafts in the past -Ruled out GI bleed -Possible dehydration -Extremely poor functionality and poor quality of life mostly bedbound in a [facility] -No code Patient was initiated on hospice and will continue with hospice care comfort measures only. Plan is for possible return to [facility] to continue with [facility] hospice. Further recommendations to follow.
[2020-03-16] MEDS: MORPHINE SULFATE 2 MG/ML SYRINGE IV PRN (20:29)
[2020-03-17] MEDS: LORazepam 2 MG/ML INJ IV PRN (02:43)
[2020-03-17] MEDS: MORPHINE SULFATE 2 MG/ML SYRINGE IV PRN (06:14)
[2020-03-17 07:20] VITALS: BP 147/76; PULSE 100; RESP 20; TEMP 98.5
[2020-03-17 08:33] VITALS: BMI 16.0
[2020-03-17] MEDS: LORazepam 0.5 MG TAB PO PRN ×2 (11:38→17:17)
[2020-03-17] MEDS: MORPHINE CONC SOLN 10mg/0.5mL ORAL SYRG PO PRN ×2 (11:38→17:17)
--- NOTE | 2020-03-17 12:39 | P.DS ---
Providers Date of admission: 03/15/20 13:48 Expected date of discharge: 03/17/20 Attending physician: Carlo Spaulding [facility] Course: Final diagnosis -Atrial tachycardia, mostly SVT -Possibility of dementia which appears to be advanced and possibly Alzheimer's -Moderate protein calorie malnutrition -Possible lung cancer adenocarcinoma, patient has history of lung cancer in 2016 which was treated -Severe peripheral vascular disease with multiple thrombosis and grafts in the past -Ruled out GI bleed -Possible dehydration -Extremely poor functionality and poor quality [facility] -No code Discharge disposition Patient is being discharged in a stable condition with guarded prognosis to [facility]. Patient will continue with hospice and comfort care measures on [facility] hospice following. Total time taken is 35 minutes. History of present illness This is a 70-year-old female who was recently admitted with abdominal pain and tachycardia and was being closely monitored. Patient was seen and evaluated by cardiology and underwent cardioversion and was initially placed on an amiodarone drip. Due to multiple complex medical issues and poor prognosis family initiated hospice care with comfort measures only. During hospitalization there was also a CT of the abdomen done showing a worsening mass in the chest which is consistent with lung cancer. Patient has a history of lung cancer in 2016 with metastatic disease that was treated. As mentioned previously, due to poor prognosis and poor functionality patient will be returning to [facility] with hospice care and comfort care measures only. Patient will be transferred to [facility] today. On exam vital signs are stable. Temp is 98.5F, pulse is 100, respirations are 20, blood pressure is 147/76, oxygen saturation is 95% on room air. Cardio S1, S2 are muffled. Respiratory shows diminished breath sounds at the bases with no wheezing or rhonchi noted. Abdomen is soft, thin, nontender. Nervous system shows no focal deficits. Please refer to medication reconciliation sheet for a list of medications. Patient Condition at Discharge: Stable Plan - Discharge Summary New Discharge Prescriptions: New LORazepam [Ativan] 0.5 mg PO Q4HR PRN #6 tab PRN Reason: Anxiety Atropine Ophth Soln 1% 5Ml [Isopto Atropine 1% 5Ml] 2 drops SUBLINGUAL Q4HR PRN bottle PRN Reason: Excess Secretions MORPHINE ORAL RAKESH CONC 20mg/mL [Roxanol Oral Soln Conc 20MG/ML] 10 mg PO Q2H PRN 3 Days #9 ml PRN Reason: Pain Acetaminophen Suppository [Tylenol Suppository] 650 mg RECTAL Q6HR PRN supp PRN Reason: Fever And/ Or Pain Continue Bisacodyl [Dulcolax] 10 mg RECTAL DAILY PRN PRN Reason: Constipation Magic Cup 1 each PO DAILY@1700 Lactose-Reduced Food [Ensure Plus] 1 can PO DAILY@0800 Discontinued Loperamide [Imodium] 2 mg PO DIRECTED PRN PRN Reason: Loose Stool Na Phos,M-B/Na Phos,Di-Ba [Fleet Adult] 133 ml RECTAL DAILY PRN PRN Reason: Constipation Acetaminophen [Tylenol] 650 mg PO QID PRN PRN Reason: Pain Megestrol Acetate 400 mg PO BID@0800,1700 Carvedilol [Coreg] 3.125 mg PO BID@0800,2100 Atorvastatin [Lipitor] 20 mg PO HS@2100 Aspirin 81 mg PO DAILY@1700 Donepezil HCl [Aricept] 5 mg PO HS@2100 amLODIPine [Norvasc] 5 mg PO DAILY@0800 Magnesium Hydroxide [Milk of Magnesia Concentrate] 7,200 mg PO DAILY PRN PRN Reason: Constipation Discharge Medication List Bisacodyl [Dulcolax] 10 mg RECTAL DAILY PRN 03/13/20 [History] Lactose-Reduced Food [Ensure Plus] 1 can PO DAILY@0800 03/13/20 [History] Magic Cup 1 each PO DAILY@1700 03/13/20 [History] Acetaminophen Suppository [Tylenol Suppository] 650 mg RECTAL Q6HR PRN supp 03/17/20 [Rx] Atropine Ophth Soln 1% 5Ml [Isopto Atropine 1% 5Ml] 2 drops SUBLINGUAL Q4HR PRN bottle 03/17/20 [Rx] LORazepam [Ativan] 0.5 mg PO Q4HR PRN #6 tab 03/17/20 [Rx] MORPHINE ORAL RAKESH CONC 20mg/mL [Roxanol Oral Soln Conc 20MG/ML] 10 mg PO Q2H PRN 3 Days #9 ml 03/17/20 [Rx] Activity/Diet/Wound Care/Special Instructions: Patient is going to [facility] with hospice Currently on dysphagia level III chopped diet as needed Discharge Disposition: TRANSFER TO SNF/ECF
== END 2020-03-17 18:34 | DRG 309 ==
LOC: 2SICU 13:48 → 5NMEDONC 22:25
PROVIDERS: ADMIT Family Medicine; ATTEND Family Medicine
DX: I47.1 Supraventricular tachycardia (principal); C34.90 Malignant neoplasm of unspecified part of unspecified bronchus or lung; E44.0 Moderate protein-calorie malnutrition; Z68.1 Body mass index [BMI] 19.9 or less, adult; T82.868A Thrombosis due to vascular prosthetic devices, implants and grafts, initial encounter; E86.0 Dehydration; G30.9 Alzheimer's disease, unspecified; F02.80 Dementia in other diseases classified elsewhere, unspecified severity, without behavioral disturbance, psychotic disturbance, mood disturbance, and anxiety; I10 Essential (primary) hypertension; I73.9 Peripheral vascular disease, unspecified; Z51.5 Encounter for palliative care; Z74.01 Bed confinement status; Z66 Do not resuscitate; R13.10 Dysphagia, unspecified; Z85.048 Personal history of other malignant neoplasm of rectum, rectosigmoid junction, and anus; Z85.118 Personal history of other malignant neoplasm of bronchus and lung; Z92.21 Personal history of antineoplastic chemotherapy; Z92.3 Personal history of irradiation; Z79.82 Long term (current) use of aspirin; Z79.899 Other long term (current) drug therapy; Z89.611 Acquired absence of right leg above knee; Z86.14 Personal history of Methicillin resistant Staphylococcus aureus infection